=== PATIENT | female | born 1980 | race Caucasian/White ===

== ENCOUNTER 2016-04-14 14:34 | Emergency (ER) | payer OTHER ==
[~2016-04-14 14:34] MED LIST: CIPRO PO; DOXYCYCLINE PO; KEPPRA1000 MG PO; KEPPRA750 MG PO; MIRALAX17 GM PO
== END 2016-04-14 14:39 | disposition home or self-care (01) ==
LOC: CFTX 14:34
DX: Z76.0 Encounter for issue of repeat prescription (principal); F17.210 Nicotine dependence, cigarettes, uncomplicated; Z98.51 Tubal ligation status
CPT/HCPCS: 99282

== ENCOUNTER 2016-05-02 07:39 | Inpatient (IN) | payer OTHER ==
--- NOTE | ~2016-05-02 | PN ---
Unit #: [id number] #: [id number] Patient: VERONIQUE RODRIGUEZ [id number] [facility] [address] [place] [address] [id number] I MR#: [id number] NAME: VERONIQUE RODRIGUEZ. ROOM: P209 Age: 36 Sex: F Admission Date: 05/02/2016 : 1980 Attending Physician: Modesto Morelos M.D. Admitting Physician: Modesto Morelos M.D. Primary Care Physician: Generic Doctor Not In System [facility] PROGRESS NOTES DATE 05/04/2016 DISCUSSION Ms. Rodriguez is a 36-year-old white female with substance abuse and mood disorder who was seen today and chart was reviewed and case was discussed with the staff. She has been anxious, withdrawn and rather seclusive to herself. Meanwhile, she has been cooperative with treatment recommendations as she has been taking the medications and tolerating them fairly well. MENTAL STATUS EXAMINATION Young white female who was casually dressed with fair personal hygiene, appears to be in no acute distress or discomfort. She was awake and alert on interaction with intact orientation. Her mood was anxious with congruent affect. She denies any suicidal or homicidal ideations. Her insight and judgement remains slightly impaired. TREATMENT PLAN 1. We will continue her on her current medications and treatment protocol. We will monitor her response to the medication and make further adjustments as needed. 2. We will continue to follow up. Dictated by... Elisa Patino/jaspreet TD: 05/05/2016 02:16 JOB #: [id number] Unit #: [id number] #: [id number] Patient: VERONIQUE RODRIGUEZ [facility] PROGRESS NOTES Page 1 of 1 X Modesto Morelos MD X PROGRESS NOTE
--- NOTE | ~2016-05-02 | PN ---
Unit #: [id number] #: [id number] Patient: VERONIQUE RODRIGUEZ [id number] [facility] [address] [place] [address] [id number] MR#: [id number] NAME: VERONIQUE RODRIGUEZ. ROOM: P209 Age: 36 Sex: F Admission Date: 05/02/2016 : 1980 Attending Physician: Modesto Morelos M.D. Admitting Physician: Modesto Morelos M.D. Primary Care Physician: Generic Doctor Not In System [facility] PROGRESS NOTES DATE OF SERVICE: 05/03/2016 SUBJECTIVE Ms. Rodriguez is a 36-year-old white female, who was seen today and chart was reviewed, and case was discussed with the staff. The patient has been anxious and withdrawn, though has not shown any agitation, irritability or behavioral problems and has been cooperative with treatment recommendations as she has been taking medications and tolerating them fairly well. MENTAL STATUS EXAMINATION Young white female, who was casually dressed with fair personal hygiene, appears to be in no distress or discomfort. Her mood was anxious with a congruent affect. Her speech was slow and restricted in content. Her thought processes were disorganized with some looseness of associations. Her insight and judgment remain significantly impaired. TREATMENT PLAN 1. We will continue her on her current medications and treatment protocol. We will monitor her response to the medications and make further adjustments as needed. 2. We will continue to follow up. Dictated by... Elisa Patino/joel TD: 05/04/2016 02:32 JOB #: [id number] [facility] PROGRESS NOTES Page 1 of 1 X Modesto Morelos MD PROGRESS NOTE
--- NOTE | ~2016-05-02 | DS ---
Unit #: [id number] #: [id number] Patient: [facility]LEXIS [id number] [facility] [address] [place] [address] [id number] MR#: [id number] NAME: VERONIQUE ALEXIS. ROOM: P209 Age: 36 Sex: F Admission Date: 05/02/2016 : 1980 Discharge Date: 05/05/2016 Attending Physician: Modesto Morelos M.D. Primary Care Physician: Generic Doctor Not In System DISCHARGE SUMMARY IDENTIFYING DATA Ms. Alexis is a 36-year-old single white female, who is a resident of [place], [place], and is known to us from previous encounter, was self-referred to the hospital. DISCHARGE DIAGNOSES Psychiatric: Major depressive disorder, recurrent, moderate, without psychotic features; opioid dependence, moderate and acute withdrawals; methamphetamine dependence, moderate. Medical: None. Stressors: Moderate psychosocial stressors. HISTORY OF PRESENT ILLNESS Please see initial psychiatric evaluation for details. PAST PSYCHIATRIC HISTORY Please see initial psychiatric evaluation for details. PAST MEDICAL HISTORY Please see initial psychiatric evaluation for details. HOSPITAL COURSE The patient was admitted to the adult psychiatric unit at [facility] and was oriented to the hospital environment. Routine p.r.n. medications were initiated, and she was started back on her home medications including her Celexa, and opioid detox protocol was initiated and she was closely monitored. She was taking the medications regularly and was tolerating them fairly well and was able to show a decent and therapeutic response and was willing to continue treatment on an outpatient basis and as such, it was decided that she will be discharged home and will continue treatment on an outpatient basis. DISCHARGE MEDICATIONS Keppra 500 mg b.i.d. for seizure disorder, Celexa 20 mg a day for depression. DISCHARGE CONDITION Stable. PROGNOSIS Fair. Dictated by... Unit #: [id number] #: [id number] Patient: VERONIQUE ALEXIS Elisa Patino/merlin TD: 05/05/2016 07:07 JOB #: [id number] DISCHARGE SUMMARY Page 1 of 1 X Modesto Morelos MD X DISCHARGE SUMMARY
--- NOTE | ~2016-05-02 | PA ---
Unit #: [id number] #: [id number] Patient: VERONIQUE RODRIGUEZ [id number] [facility] [address] [place] [address] [id number] I MR#: [id number] NAME: VERONIQUE RODRIGUEZ. ROOM: P209 Age: 36 Sex: F Admission Date: 05/02/2016 : 1980 Date of Assessment: 05/02/2016 Attending Physician: Modesto Morelos M.D. Admitting Physician: Modesto Morelos M.D. Primary Care Physician: Generic Doctor Not In System PSYCHIATRIC ASSESSMENT DATE OF SERVICE 05/02/2016. IDENTIFYING DATA Ms. Rodriguez is a 36-year-old single white female who is a resident of [place], [place] who is known to us from previous encounter and was self-referred to the hospital. CHIEF COMPLAINT "I started doing heroin again and I've been doing it since I left." HISTORY OF PRESENT ILLNESS Ms. Rodriguez is a 36-year-old single white female who is known to us from previous encounter, was self-referred to the hospital stating that she relapsed on heroin soon after she left the hospital and has been using heroin ever since and "I'm tired of being high and I just want to get back on feet and I talked to my kids and they said that they want their mother back." The patient stated that she has been using and abusing heroin and methamphetamine social at [facility] that she has been using 0.5 g to 1 g of heroin on daily basis by snorting and has been using 1 g of methamphetamine by smoking and snorting, and last use of both substances was on the morning of coming to the hospital and does report some significant depression, anxiety, restlessness, irritability, and reports that she has been having suicidal thoughts "I want to kill myself. I'm not planned it out, but I want to . I would rather be than deal with my life." She was seen to be danger to self and as such, recommendation for inpatient level of care for safety and stabilization was made and recommendation for inpatient level of care was initiated. SUBSTANCE ABUSE HISTORY The patient reports history of cannabis, cocaine, opioids, and methamphetamine abuse, and currently opioids and methamphetamine has been her drug of choice. PAST PSYCHIATRIC HISTORY The patient has had history of inpatient chemical dependency treatment at [facility] and review of the medical records indicate that she is currently on Celexa 20 mg a day. PAST MEDICAL HISTORY Seizure disorder. ALLERGIES Unit #: [id number] #: [id number] Patient: VERONIQUE RODRIGUEZ No known medication allergies. PERSONAL AND SOCIAL HISTORY A 36-year-old white female who reports that she is single, unemployed, and lives at home by herself and has poor social support system. MENTAL STATUS EXAMINATION Young white female who was casually dressed with fair personal hygiene, appears to be in no acute distress or discomfort. She was awake and alert on interaction with intact orientation to time, place, and person. Her mood was anxious and depressed with a congruent affect. Her speech was slow and goal directed. She reports having suicidal ideations, but denies any homicidal ideations, and also denies any auditory or visual hallucinations. Her insight and judgment remain significantly impaired. DIAGNOSTIC IMPRESSION Psychiatric: Major depressive disorder, recurrent, moderate, without psychotic features; opioid dependence, moderate and acute withdrawals; methamphetamine dependence, moderate. Medical: None. Stressors: Moderate psychosocial stressors. TREATMENT PLAN 1. The patient has presented with a history of mood disorder and substance abuse, and has been decompensating and will need inpatient hospitalization for detoxification, and safety, and stabilization. We will start her back on her home medications. We will adjust the medications and monitor response. 2. Supportive therapy was provided to the patient. 3. Safe, structured, and nourishing environment will be provided. ESTIMATED LENGTH OF STAY 4 to 5 days. ABILITY TO HELP SELF Limited. WILLINGNESS TO HELP SELF The patient appears to be willing to help self. STRENGTHS 1. Communicative. 2. Cooperative. PROBLEMS 1. Chronic dysphoric symptoms. 2. Chronic chemical dependency. 3. Poor social support system. DISCHARGE CRITERIA This will be contingent upon the patient's ability to show resolution of her depression and her ability to go through detox without having any significant withdrawal symptoms as well as her ability to stay safe to herself, particularly after discharge from the hospital. Dictated by..Alma Morelos M.D. Unit #: [id number] #: [id number] Patient: VERONIQUE RODRIGUEZ IAA/modl TD: 05/03/2016 08:30 JOB #: [id number] PSYCHIATRIC ASSESSMENT Page 1 of 1 X Modesto Moreols MD PSYCHIATRIC ASSESSMENT
--- NOTE | ~2016-05-02 | HP ---
Unit #: [id number] #: [id number] Patient: SHERIN RODRIGUEZ [id number] [place] [address] [id number] MR#: [id number] NAME: SHERIN RODRIGUEZ. ROOM: P209 Age: 36 Sex: F Admission Date: 05/02/2016 : 1980 Attending Physician: Modesto Morelos M.D. Admitting Physician: Modesto Morelos M.D. Primary Care Physician: Generic Doctor Not In System HISTORY AND PHYSICAL HISTORY OF PRESENT ILLNESS Sherin is a 36 year old admitted to [address] [place] [address] because of her continued drug use. She has had other admissions to this facility for the same. PAST MEDICAL HISTORY 1. Long history of illicit substance abuse. 2. Poor dental hygiene. 3. Seizure disorder. EEG from October 24, 2002 was abnormal showing paroxysmal flowing centrally with sharp discharges suggestive of irritative focus in the central region. PAST SURGICAL HISTORY Tubal ligation. ALLERGIES No known drug allergies. SOCIAL HISTORY Smokes one pack per day. Drinks alcohol on occasion. Admits to a long history of illicit substance abuse. FAMILY HISTORY Medically noncontributory. REVIEW OF SYSTEMS CONSTITUTIONAL: No fever or chills. HEENT: Denies any sore throat, ear pain or runny nose. CARDIOVASCULAR: Denies chest pain, irregular heart rhythm or palpitations. CHEST: Denies shortness of breath or cough. No hemoptysis. GASTROINTESTINAL: Denies nausea, vomiting, diarrhea or chronic constipation. ENDOCRINE: Denies history of increased thirst or urination. No recent significant weight loss or gain. GENITOURINARY: Denies dysuria, frequency, or hematuria. SKIN: Denies any rashes. HEMATOLOGIC: Denies history of increased bleeding or bruising. MUSCULOSKELETAL: Denies any hot, swollen joints. No generalized muscle pain. NEUROLOGIC: Denies problems with vision or speech. No frequent, severe headaches. No numbness, tingling or weakness in any extremities. Denies loss of bladder or bowel control. CURRENT MEDICATIONS Unit #: [id number] #: [id number] Patient: SHERIN RODRIGUEZ 1. Detox protocol 2. Celexa 20 mg daily 3. Keppra 500 mg b.i.d. PHYSICAL EXAMINATION GENERAL: Alert, thin, in no apparent distress. VITAL SIGNS: Blood pressure 117/68, heart rate 80, respirations 16, temperature 98.6. WEIGHT: 140 pounds. HEIGHT: 5'5". SKIN: Warm and dry without rash or lesion. HEENT: Normocephalic. TMs not viewed. Oral and nasal passages clear. Conjunctivae clear. Pupils equal, round and reactive to light and accommodation. Extraocular movements intact. NECK: Supple without lymphadenopathy or thyromegaly. HEART: Regular rate and rhythm without murmur. LUNGS: Clear. ABDOMEN: Soft, nontender. : Not done. EXTREMITIES: No evidence of cyanosis, clubbing or edema. Moves all extremities without focal deficit. NEUROLOGICAL: Grossly within normal limits. Cranial Nerves: II: Visual reaves are intact. III, IV AND : Extraocular movements are intact. Pupils are equal, round and reactive to light. V: Facial sensation is grossly normal. VII: Facial movements and expression are normal. VIII: Auditory acuity grossly intact. IX, X: Uvula is midline. Phonation is normal. XI: Patient shrugs shoulders and turns head normally. XII: Tongue protrudes in the midline. Sensory and Motor Function: Sensory and motor sensation is grossly normal. Motor: moves all extremities well. Coordination: Gait is normal. Deep Tendon Reflexes: Intact. IMPRESSION Psychiatric admission RECOMMENDATIONS PSYCHIATRIC: Per psychiatrist. MEDICAL: I see no contraindications to participating in facility's activities. MEDICAL PROGNOSIS Good. MEDICAL CONDITION Stable. Dictated by... Pam Mondragon P.A.-C. for Elisa Schuster/jaspreet Unit #: [id number] #: [id number] Patient: SHERIN RODRIGUEZ TD: 05/02/2016 20:23 JOB #: [id number] HISTORY AND PHYSICAL X Pam Mondragon HISTORY AND PHYSICAL
[2016-05-03 09:34] LABS: BASOPHIL% 0.8 % (0-2.5); EOSINOPHIL# 0.2 X10e3 (0-0.7); EOSINOPHIL% 3.5 % (0.0-7.0); HEMATOCRIT 34.2 % (35.0-45.0); HEMOGLOBIN 10.9 gm/dL (12.0-16.0); LYMPHOCYTE# 1.7 X10e3 (1.0-3.5); MEAN CELL VOLUME 87.8 FL (83-96); MEAN CORPUSCULAR HEMOGLOBIN 27.9 PG (28-34); MEAN CORPUSCULAR HGB CONC 31.8 g/dL (30-36); MEAN PLATELET VOLUME 9.1 FL (6.5-11.5); MONOCYTE# 0.3 X10e3 (0-1.0); MONOCYTE% 6.1 % (3.0-12.0); NEUTROPHIL# 3.3 X10e3 (1.5-7.1); NEUTROPHIL% 59.6 % (40-75); PLATELET COUNT 194 X10e3 (140-420); WHITE BLOOD COUNT 5.5 X10e3 (4.0-10.5)
[2016-05-03 09:39] LABS: DIFF IND NO
[2016-05-03 10:20] LABS: THYROID STIMULATING HORMONE 1.83 uIU/ml (0.34-5.60)
[2016-05-03 10:22] LABS: ALBUMIN SERUM 3.8 g/dL (3.5-5.0); ALKALINE PHOSPHATASE 76 U/L (32-92); ALT (SGPT) 14 U/L (10-40); AST (SGOT) 18 U/L (10-42); BILIRUBIN,TOTAL 0.6 mg/dL (0.2-2.0); BLOOD UREA NITROGEN 14 mg/dL (9-23); CARBON DIOXIDE 28 mmol/L (22-31); CHLORIDE 102 mmol/L (100-111); CREATININE SERUM 0.7 mg/dL (0.6-1.4); GLOM FILT RATE Estimated ABOVE60 mL/min (>60); GLUCOSE FASTING 110 mg/dL (70-110); POTASSIUM 4.1 mmol/L (3.5-5.1); PROTEIN TOTAL SERUM 6.3 g/dL (6.0-8.3); SODIUM 138 mmol/L (135-145)
[2016-05-03 10:29] LABS: FREE THYROXIN (T4) 0.66 ng/dL (0.58-1.64)
[2016-05-04 12:41] LABS: URINE APPEARANCE TURBID; URINE BILIRUBIN NEG (NEG); URINE BLOOD 3+ (NEG); URINE COLOR YELLOW; URINE GLUCOSE NEG (NEG); URINE KETONE NEG (NEG); URINE LEUKOCYTE ESTERASE NEG (NEG); URINE NITRATE NEG (NEG); URINE PROTEIN NEG (NEG); URINE UROBILINOGEN 0.2 MG/DL (NEG)
[2016-05-04 12:45] LABS: URINE BACTERIA AUWI 2+ (NEGATIVE); URINE SQUAMOUS EPITHELIAL CELL MANY /[HPF]
[2016-05-04 13:30] LABS: AMPHETAMINE NEG (NEG); BARBITURATES NEG (NEG); BENZODIAZEPINES NEG (NEG); COCAINE NEG (NEG); MARIJUANA NEG (NEG); OPIATES NEG (NEG); TRICYCLIC ANTIDEPRESSANTS NEG (NEG); U METHADONE NEG (NEG)
== END 2016-05-05 11:25 | disposition home or self-care (01) | DRG 885 ==
LOC: POF 07:39 → P2S 10:57
PROVIDERS: Psychiatry & Neurology Psychiatry
PROC: HZ2ZZZZ Detoxification Services for Substance Abuse Treatment (ICD-10-PCS; principal; 2016-05-02)
PROC: 3E0234Z Introduction of Serum, Toxoid and Vaccine into Muscle, Percutaneous Approach (ICD-10-PCS; 2016-05-03)
DX: F33.1 Major depressive disorder, recurrent, moderate (principal); F15.20 Other stimulant dependence, uncomplicated; F11.23 Opioid dependence with withdrawal; F17.210 Nicotine dependence, cigarettes, uncomplicated; G40.909 Epilepsy, unspecified, not intractable, without status epilepticus; Z98.51 Tubal ligation status; Z23 Encounter for immunization
CPT/HCPCS: 80053; 80307; 81003; 84439; 84443; 84703; 85025; 86592; 90688

== ENCOUNTER 2016-05-21 06:11 | Emergency (ER) | payer OTHER ==
[2016-05-21 06:21] LABS: AMPHETAMINE POS (NEG); BARBITURATES NEG (NEG); BENZODIAZEPINES NEG (NEG); COCAINE NEG (NEG); MARIJUANA NEG (NEG); OPIATES NEG (NEG); TRICYCLIC ANTIDEPRESSANTS NEG (NEG); U METHADONE NEG (NEG)
== END 2016-05-21 06:34 | disposition home or self-care (01) ==
LOC: CED 06:11
PROVIDERS: Nurse Practitioner
DX: G40.909 Epilepsy, unspecified, not intractable, without status epilepticus (principal); Z76.0 Encounter for issue of repeat prescription; F19.10 Other psychoactive substance abuse, uncomplicated; F17.210 Nicotine dependence, cigarettes, uncomplicated
CPT/HCPCS: 80307; 84703; 99284

== ENCOUNTER 2016-06-13 16:02 | Emergency (ER) | payer OTHER ==
[2016-06-13 14:58] LABS: BASOPHIL% 0.6 % (0-2.5); EOSINOPHIL# 0.2 X10e3 (0-0.7); EOSINOPHIL% 2.7 % (0.0-7.0); HEMATOCRIT 39.2 % (35.0-45.0); HEMOGLOBIN 12.3 gm/dL (12.0-16.0); LYMPHOCYTE# 1.5 X10e3 (1.0-3.5); LYMPHOCYTE% 23.4 % (17.0-45.0); MEAN CELL VOLUME 87.8 FL (83-96); MEAN CORPUSCULAR HEMOGLOBIN 27.6 PG (28-34); MEAN CORPUSCULAR HGB CONC 31.4 g/dL (30-36); MEAN PLATELET VOLUME 9.6 FL (6.5-11.5); MONOCYTE# 0.4 X10e3 (0-1.0); MONOCYTE% 6.2 % (3.0-12.0); NEUTROPHIL# 4.3 X10e3 (1.5-7.1); NEUTROPHIL% 67.1 % (40-75); PLATELET COUNT 183 X10e3 (140-420); RED BLOOD COUNT 4.46 X10e (3.90-5.30); RED CELL DISTRIBUTION WIDTH 17.8 % (11.0-15.5); WHITE BLOOD COUNT 6.4 X10e3 (4.0-10.5)
[2016-06-13 15:04] LABS: DIFF IND NO
[2016-06-13 15:38] LABS: BLOOD UREA NITROGEN 11 mg/dL (9-23); CALCIUM SERUM 9.1 mg/dL (8.4-10.2); CARBON DIOXIDE 26 mmol/L (22-31); CHLORIDE 106 mmol/L (100-111); CREATININE SERUM 0.5 mg/dL (0.6-1.4); GLOM FILT RATE Estimated 126.3 mL/min (>60); GLUCOSE FASTING 107 mg/dL (70-110); SODIUM 140 mmol/L (135-145)
[2016-06-13 15:39] LABS: ALCOHOL BLOOD <5 mg/dL (0)
[2016-06-13 15:56] LABS: URINE SOURCE CLEAN CATCH
[2016-06-13 16:02] LABS: URINE APPEARANCE CLEAR; URINE BILIRUBIN NEG (NEG); URINE BLOOD TRACE (NEG); URINE COLOR YELLOW; URINE GLUCOSE NEG (NEG); URINE KETONE NEG (NEG); URINE LEUKOCYTE ESTERASE NEG (NEG); URINE NITRATE NEG (NEG); URINE PROTEIN NEG (NEG); URINE UROBILINOGEN 0.2 MG/DL (NEG)
[2016-06-13 16:05] LABS: CULTURE INDICATED? YES; U HYALINE CASTS AUWI 0-2 /[LPF]; URBCS1 AUWI 0-2 /[HPF] (0-2); URINE BACTERIA AUWI 3+ (NEGATIVE); URINE SQUAMOUS EPITHELIAL CELL FEW /[HPF]
[2016-06-13 16:12] LABS: AMPHETAMINE POS (NEG); BARBITURATES NEG (NEG); BENZODIAZEPINES NEG (NEG); COCAINE NEG (NEG); MARIJUANA NEG (NEG); OPIATES NEG (NEG); TRICYCLIC ANTIDEPRESSANTS NEG (NEG); U METHADONE NEG (NEG)
== END 2016-06-13 16:31 | disposition home or self-care (01) ==
LOC: CED 16:02
PROVIDERS: Emergency Medicine
DX: N39.0 Urinary tract infection, site not specified (principal); Z76.0 Encounter for issue of repeat prescription; G40.909 Epilepsy, unspecified, not intractable, without status epilepticus; F17.210 Nicotine dependence, cigarettes, uncomplicated
CPT/HCPCS: 36415; 80048; 80307; 81003; 84703; 85025; 87086; 96365; 99284; G0480; J1953

== ENCOUNTER 2016-06-30 05:05 | Emergency (ER) | payer OTHER ==
[2016-06-30 08:28] LABS: BASOPHIL% 0.7 % (0-2.5); DIFF IND NO; EOSINOPHIL# 0.2 X10e3 (0-0.7); EOSINOPHIL% 2.7 % (0.0-7.0); HEMATOCRIT 35.2 % (35.0-45.0); HEMOGLOBIN 11.2 gm/dL (12.0-16.0); LYMPHOCYTE# 1.9 X10e3 (1.0-3.5); LYMPHOCYTE% 26.8 % (17.0-45.0); MEAN CELL VOLUME 86.4 FL (83-96); MEAN CORPUSCULAR HEMOGLOBIN 27.5 PG (28-34); MEAN CORPUSCULAR HGB CONC 31.9 g/dL (30-36); MEAN PLATELET VOLUME 9.3 FL (6.5-11.5); MONOCYTE# 0.5 X10e3 (0-1.0); MONOCYTE% 6.4 % (3.0-12.0); NEUTROPHIL# 4.5 X10e3 (1.5-7.1); NEUTROPHIL% 63.4 % (40-75); PLATELET COUNT 204 X10e3 (140-420); RED BLOOD COUNT 4.07 X10e (3.90-5.30); WHITE BLOOD COUNT 7.1 X10e3 (4.0-10.5)
[2016-06-30 09:27] LABS: CALCIUM SERUM 8.9 mg/dL (8.4-10.2); CARBON DIOXIDE 25 mmol/L (22-31); CHLORIDE 105 mmol/L (100-111); POTASSIUM 3.3 mmol/L (3.5-5.1); SODIUM 140 mmol/L (135-145)
[2016-06-30 09:30] LABS: ACETAMINOPHEN <10 ug/mL; ALBUMIN SERUM 3.7 g/dL (3.5-5.0); ALCOHOL BLOOD <5 mg/dL (0); ALKALINE PHOSPHATASE 83 U/L (32-92); ALT (SGPT) 12 U/L (10-40); AST (SGOT) 17 U/L (10-42); BILIRUBIN, DIRECT <0.1 mg/dL (0.0-0.2); BILIRUBIN,INDIRECT 0.3 mg/dL (0.0-0.9); BILIRUBIN,TOTAL 0.4 mg/dL (0.2-2.0); BLOOD UREA NITROGEN 12 mg/dL (9-23); CREATININE SERUM 0.6 mg/dL (0.6-1.4); GLOM FILT RATE Estimated 118.9 mL/min (>60); GLUCOSE FASTING 130 mg/dL (70-110); PROTEIN TOTAL SERUM 6.5 g/dL (6.0-8.3); SALICYLATE <4.0 mg/dL
== END 2016-06-30 13:50 | disposition home or self-care (01) ==
LOC: CED 05:05
PROVIDERS: Emergency Medicine
DX: F15.10 Other stimulant abuse, uncomplicated (principal); F41.9 Anxiety disorder, unspecified; F17.200 Nicotine dependence, unspecified, uncomplicated
CPT/HCPCS: 36415; 80048; 80076; 84703; 85025; 99285; G0480

== ENCOUNTER 2016-06-30 10:00 | Inpatient (IN) | payer OTHER ==
--- NOTE | ~2016-06-30 | PN ---
Unit #: [id number] #: [id number] Patient: VERONIQUE ALEXIS [id number] [facility] [address] [place] [address] [id number] MR#: [id number] NAME: VERONIQUE ALEXIS. ROOM: [facility] Age: 36 Sex: F Admission Date: 06/30/2016 : 1980 Attending Physician: Modesto Morelos M.D. Admitting Physician: Modesto Morelos M.D. Primary Care Physician: Primary Care Physician Catia BEASLEY PROGRESS NOTES DATE 07/02/2016 DISCUSSION Ms. Alexis is a 36-year-old white female who was seen today and chart was reviewed and case was discussed with the staff. By report she was anxious, withdrawn and seclusive to herself and (1) to carry a meaningful conversation. Does not appear to be actively functioning or taking care of her daily living or paying attention to her personal hygiene and does appear to be some distress or discomfort. MENTAL STATUS EXAMINATION Young white female who was casually dressed with fair personal hygiene, appears to be in no acute distress or discomfort. Her mood was anxious with congruent affect. Her speech was slow and goal-directed. She denies any suicidal or homicidal ideations. Also, denies any auditory or visual hallucinations. Her insight and judgement remains slightly impaired. TREATMENT PLAN 1. We will continue her on her current medications and treatment protocol. We will monitor her response and make further adjustments as needed. 2. We will continue to follow up. Dictated by... Elisa Patino/jaspreet TD: 07/03/2016 19:40 JOB #: [id number] Unit #: [id number] #: [id number] Patient: VERONIQUE ALEXIS [facility] PROGRESS NOTES Page 1 of 1 X Modesto Morelos MD PROGRESS NOTE
--- NOTE | ~2016-06-30 | HP ---
Unit #: [id number] #: [id number] Patient: SHERIN RODRIGUEZ [id number] [place] [address] [id number] MR#: [id number] NAME: SHERIN RODRIGUEZ. ROOM: [facility] Age: 36 Sex: F Admission Date: 06/30/2016 : 1980 Attending Physician: Modesto Morelos M.D. Admitting Physician: Modesto Morelos M.D. Primary Care Physician: Primary Care Physician No HISTORY AND PHYSICAL HISTORY OF PRESENT ILLNESS Sherin is a 36 year old admitted to [facility] because of her continued polysubstance abuse. She has had other admissions to this facility for the same. PAST MEDICAL HISTORY 1. Long history of illicit substance abuse. 2. Seizure disorder. 3. Poor dental hygiene. PAST SURGICAL HISTORY Tubal ligation ALLERGIES No known drug allergies. SOCIAL HISTORY Smokes one pack per day. Drinks alcohol on occasion. Admits to a long history of illicit substance abuse. FAMILY HISTORY Medically noncontributory. REVIEW OF SYSTEMS CONSTITUTIONAL: No fever or chills. HEENT: Denies any sore throat, ear pain or runny nose. CARDIOVASCULAR: Denies chest pain, irregular heart rhythm or palpitations. CHEST: Denies shortness of breath or cough. No hemoptysis. GASTROINTESTINAL: Denies nausea, vomiting, diarrhea or chronic constipation. ENDOCRINE: Denies history of increased thirst or urination. No recent significant weight loss or gain. GENITOURINARY: Denies dysuria, frequency, or hematuria. SKIN: Denies any rashes. HEMATOLOGIC: Denies history of increased bleeding or bruising. MUSCULOSKELETAL: Denies any hot, swollen joints. No generalized muscle pain. NEUROLOGIC: Denies problems with vision or speech. No frequent, severe headaches. No numbness, tingling or weakness in any extremities. Denies loss of bladder or bowel control. CURRENT MEDICATIONS Unit #: [id number] #: [id number] Patient: SHERIN RODRIGUEZ 1. Keppra 1000 mg b.i.d. 2. Milk of Magnesia p.r.n. 3. Maalox p.r.n. 4. Tylenol p.r.n. 5. Nicotine patch 14 mg q day PHYSICAL EXAMINATION GENERAL: Alert, well-nourished, in no apparent distress. VITAL SIGNS: Blood pressure 118/80, heart rate 80, respirations 16, temperature 98.6. WEIGHT: 121 pounds. HEIGHT: 5'4". SKIN: Warm and dry without rash or lesion. HEENT: Normocephalic. TMs not viewed. Oral and nasal passages clear. Conjunctivae clear. Pupils equal, round and reactive to light and accommodation. Extraocular movements intact. NECK: Supple without lymphadenopathy or thyromegaly. HEART: Regular rate and rhythm without murmur. LUNGS: Clear. ABDOMEN: Soft, nontender. : Not done. EXTREMITIES: No evidence of cyanosis, clubbing or edema. Moves all extremities without focal deficit. NEUROLOGICAL: Grossly within normal limits. Cranial Nerves: II: Visual reaves are intact. III, IV AND : Extraocular movements are intact. Pupils are equal, round and reactive to light. V: Facial sensation is grossly normal. VII: Facial movements and expression are normal. VIII: Auditory acuity grossly intact. IX, X: Uvula is midline. Phonation is normal. XI: Patient shrugs shoulders and turns head normally. XII: Tongue protrudes in the midline. Sensory and Motor Function: Sensory and motor sensation is grossly normal. Motor: moves all extremities well. Coordination: Gait is normal. Deep Tendon Reflexes: Intact. IMPRESSION Psychiatric admission RECOMMENDATIONS PSYCHIATRIC: Per psychiatrist. MEDICAL: I see no contraindications to participating in facility's activities. MEDICAL PROGNOSIS Good. MEDICAL CONDITION Stable. Dictated by... Pam Mondragon P.A.-C. for Marv Schwarz M.D. Unit #: [id number] #: [id number] Patient: SHERIN RODRIGUEZ NATALIIA/jaspreet TD: 07/01/2016 01:27 JOB #: [id number] HISTORY AND PHYSICAL Page 1 of 1 X Pam Mondragon HISTORY AND PHYSICAL
--- NOTE | ~2016-06-30 | PN ---
Unit #: [id number] #: [id number] Patient: VERONIQUE ALEXIS [id number] [facility] [address] [place] [address] [id number] I MR#: [id number] NAME: VERONIQUE ALEXIS. ROOM: P185 Age: 36 Sex: F Admission Date: 06/30/2016 : 1980 Attending Physician: Modesto Morelos M.D. Admitting Physician: Modesto Morelos M.D. Primary Care Physician: Primary Care Physician Catia MAZA NOTES DATE OF SERVICE: 07/04/2016 SUBJECTIVE Ms. Alexis is a 36-year-old white female with substance abuse and mood disorder, who was seen today and chart was reviewed, and case was discussed with the staff. She reports not feeling good and still having some persistent detox symptoms and activities of daily living. Meanwhile, she has been taking medications and tolerating them fairly well with no reported side effects. MENTAL STATUS EXAMINATION Young white female, who was casually dressed with fair personal hygiene, appears to be in no acute distress or discomfort. She was awake and alert on interaction with intact orientation. Her mood was anxious and depressed with a congruent affect. Her speech was slow and goal directed. She denies any suicidal or homicidal ideations and also denies any auditory or visual hallucinations. Her insight and judgment remain slightly impaired. TREATMENT PLAN 1. We will continue on her current treatment protocol. We will monitor her response to medications and make further adjustments as needed. 2. We will continue to follow up. Dictated by... Elisa Patino/merlin TD: 07/04/2016 08:16 JOB #: [id number] Unit #: [id number] #: [id number] Patient: VERONIQUE ALEXIS [facility] PROGRESS NOTES Page 1 of 1 X Modesto Morelos MD PROGRESS NOTE
--- NOTE | ~2016-06-30 | CO ---
Unit #: [id number] #: [id number] Patient: SHERIN RODRIGUEZ [id number] [place] [address] [id number] I MR#: [id number] NAME: SHERIN RODRIGUEZ. ROOM: [facility] Age: 36 Sex: F Admission Date: 06/30/2016 : 1980 Attending Physician: Modesto Morelos M.D. Primary Care Physician: Primary Care Physician No Requesting Physician: Modesto Morelos M.D. Consultation Date: 07/02/2016 CONSULTATION REPORT HISTORY OF PRESENT ILLNESS Sherin has complaints of chest and nasal congestion. She is having occasional cough with runny nose and sneezing for the past week and half. No fever, no shortness of breath, no throat and no ear pain. She has no other complaints. PHYSICAL EXAM CARDIAC: Regular rate and rhythm. No murmur, gallop or rub. RESPIRATORY: Clear to auscultation bilaterally. ASSESSMENT AND PLAN Allergic rhinitis. We will begin Claritin 10 mg one p.o. daily and Flonase two sprays per nostril daily. Please notify if symptoms are unresolved. Dictated by... Skylar RolonPAlmaRAlmaN. for Chuck TD: 07/04/2016 01:01 JOB #: [id number] CONSULTATION REPORT Page 1 of 1 X TWIN WALTERS APRN CONSULTATION REPORT
--- NOTE | ~2016-06-30 | PN ---
Unit #: [id number] #: [id number] Patient: VERONIQUE ALEXIS [id number] [facility] [address] [place] [address] [id number] I MR#: [id number] NAME: VERONIQUE ALEXIS. ROOM: 85 Age: 36 Sex: F Admission Date: 06/30/2016 : 1980 Attending Physician: Modesto Morelos M.D. Admitting Physician: Modesto Morelos M.D. Primary Care Physician: Primary Care Physician Catia MAZA NOTES DATE 07/01/2016 DISCUSSION Ms. Alexis is a 36-year-old white female with mood disorder and substance abuse who was seen today and chart was reviewed and case was discussed with the staff. She has been anxious, withdrawn, depressed, anxious, ____ as she was laying in her bed. Meanwhile, she has been cooperative with treatment recommendations and has been taking medications and tolerating them fairly well with no reported side effects. MENTAL STATUS EXAMINATION Young white female who was casually dressed with fair personal hygiene and appears to be in no acute distress or discomfort. She was awake and alert on interaction with intact orientation. Her mood was anxious with congruent affect. She reports having suicidal ideation but denies any homicidal ideation and also denies any auditory or visual hallucinations. Her insight and judgement remains slightly impaired. TREATMENT PLAN 1. Will continue on current medications and treatment protocol and will monitor her response to the medications and make further adjustments as needed. 2. Will continue to follow up. Dictated by... Elisa Patino/emma TD: 07/01/2016 19:56 JOB #: [id number] Unit #: [id number] #: [id number] Patient: VERONIQUE ALEXIS [facility] PROGRESS NOTES Page 1 of 1 X Modesto Morelos MD PROGRESS NOTE
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
--- NOTE | ~2016-06-30 | PA ---
Unit #: [id number] #: [id number] Patient: VERONIQUE RODRIGUEZ [id number] [facility] [address] [place] [address] [id number] I MR#: [id number] NAME: VERONIQUE RODRIGUEZ. ROOM: P185 Age: 36 Sex: F Admission Date: 06/30/2016 : 1980 Date of Assessment: 06/30/2016 Attending Physician: Modesto Morelos M.D. Admitting Physician: Modesto Morelos M.D. Primary Care Physician: Primary Care Physician No PSYCHIATRIC ASSESSMENT DATE OF SERVICE 06/30/2016. IDENTIFYING DATA Ms. Rodriguez is a 36-year-old, single, white female, who is a resident of [place], [place], and was transferred to from [facility] on a voluntary basis. CHIEF COMPLAINT "Suicidal ideation and methamphetamine abuse." HISTORY OF PRESENT ILLNESS Ms. Rodriguez is a 36-year-old white female with dual diagnosis of mood disorder and substance abuse, who is known to us from previous encounter, was recently discharged from my care a couple of months ago and was transferred back to us from [facility] where she presented stating that she has been having suicidal ideation and she is wanting to hurt herself and does not know how she would do it, but stated "I'm done, done with my life, with everything, there is no point anymore." She reports that she has been using methamphetamine on a regular basis with the last use being on the morning of coming to the hospital. She also stated "I live with some friends." She reports that her friends are getting custody of their two children back, so, the patient will have to move out very soon and the patient reports that she has no housing plans after that and her mother 4 years ago and also reports that her relationship for 19 years ended a year ago and she is having difficulty coping with abandonment and does report increasing depression, anxiety, feelings of hopelessness and helplessness, stating "I've no one." She also reports suicidal ideations, intent and plan and as such, was seen to be danger to self and therefore recommendation for inpatient level of care was made and the patient was medically cleared to [facility] and then was transferred to us. SUBSTANCE ABUSE HISTORY The patient reports history of cannabis, cocaine, opioid, and amphetamine abuse, and currently, it appears that IV methamphetamine has been her drug of choice and she reports that she has been using 0.5 g of methamphetamine a day. PAST PSYCHIATRIC HISTORY The patient has had a history of multiple inpatient psychiatric and chemical dependency treatments at [facility] in addition to being at [facility] and review of the medical records indicate currently she is Unit #: [id number] #: [id number] Patient: VERONIQUE RODRIGUEZ not active in any treatment program, is not seeing a psychiatrist, and is not taking any psychotropic medications. PAST MEDICAL HISTORY Seizure disorder. ALLERGIES No known medication allergies. PERSONAL AND SOCIAL HISTORY A 36-year-old single white female, who reports that she is single, unemployed, and has been living with different friends and people and she does not have any stable housing and essentially describes herself to be homeless. MENTAL STATUS EXAMINATION Young white female, who was casually dressed with fair personal hygiene, appears to be in no acute distress or discomfort. She was awake and alert on interaction with intact orientation to time, place, and person. Her mood was anxious and depressed with a congruent affect. Her speech was slow and restricted in content. She reports having suicidal ideations, but denies any homicidal ideations, and also denies any auditory or visual hallucinations. Her insight and judgment remain slightly impaired. DIAGNOSTIC IMPRESSION Psychiatric: Major depressive disorder, recurrent, moderate, without psychotic features; methamphetamine dependence, moderate. Medical: Seizure disorder. Stressors: Moderate psychosocial stressors. TREATMENT PLAN 1. The patient has presented with a history of mood disorder, and has been decompensating and will need inpatient hospitalization for safety and stabilization. We will start her back on her home medications. We will adjust the medications and monitor response. 2. Supportive therapy was provided to the patient. 3. Safe, structured, and nourishing environment will be reported. ESTIMATED LENGTH OF STAY 4 to 5 days. ABILITY TO HELP SELF Limited. WILLINGNESS TO HELP SELF The patient appears to be willing to help self. STRENGTHS 1. Communicative. 2. Cooperative. PROBLEMS 1. Chronic dysphoric symptoms. 2. Chronic chemical dependency. 3. Poor social support system. Unit #: [id number] #: [id number] Patient: VERONIQUE RODRIGUEZ DISCHARGE CRITERIA This will be contingent upon the patient's ability to show resolution of her depression and anxiety and her ability to stay safe to herself, particularly after discharge from the hospital. Dictated by... Elisa Patino/merlin TD: 07/01/2016 07:05 JOB #: [id number] PSYCHIATRIC ASSESSMENT Page 1 of 1 X Modesto Morelos MD X PSYCHIATRIC ASSESSMENT
--- NOTE | ~2016-06-30 | DS ---
Unit #: [id number] #: [id number] Patient: [facility] ALEXIS [id number] [facility] [address] [place] [address] [id number] I MR#: [id number] NAME: VERONIQUE ALEXIS. ROOM: [facility] Age: 36 Sex: F Admission Date: 06/30/2016 : 1980 Discharge Date: 07/05/2016 Attending Physician: Modesto Morelos M.D. Primary Care Physician: Primary Care Physician No DISCHARGE SUMMARY IDENTIFYING DATA Ms. Alexis is a 36-year-old white female, who is a resident of [place], [place], and was transferred to us from [facility]. DISCHARGE DIAGNOSES Psychiatric: Major depressive disorder, recurrent, moderate, without psychotic features; methamphetamine dependence, moderate. Medical: Seizure disorder. Stressors: Moderate psychosocial stressors. HISTORY OF PRESENT ILLNESS Please see initial psychiatric evaluation for details. PAST PSYCHIATRIC HISTORY Please see initial psychiatric evaluation for details. PAST MEDICAL HISTORY Please see initial psychiatric evaluation for details. HOSPITAL COURSE The patient was admitted to the adult psychiatric and chemical dependency unit at [facility] and was oriented to the hospital environment. Routine p.r.n. medications were initiated, and she was started back on her home medications and medications were adjusted and Keppra was started back and Celexa was also initiated to help with depression and she was closely monitored. She was taking the medications regularly and was tolerating them fairly well and was able to show a decent therapeutic response with improvement in depression and anxiety and was able to show a decent therapeutic response to the medications and was willing to continue treatment on an outpatient basis and as such, it was decided that she will be discharged home and will continue treatment on an outpatient basis. DISCHARGE MEDICATIONS Celexa 20 mg a day for depression, Keppra 1000 mg b.i.d. for seizure disorder, and trazodone 100 mg at bedtime for sleep. DISCHARGE CONDITION Stable. PROGNOSIS Fair. Unit #: [id number] #: [id number] Patient: VERONIQUE ALEXIS Dictated by... Elisa Patino/merlin TD: 07/05/2016 07:49 JOB #: [id number] DISCHARGE SUMMARY Page 1 of 1 X Modesto Morelos MD DISCHARGE SUMMARY
--- NOTE | ~2016-06-30 | PN ---
Unit #: [id number] #: [id number] Patient: VERONIQUE RODRIGUEZ [id number] [facility] [address] [place] [address] [id number] I MR#: [id number] NAME: VERONIQUE RODRIGUEZ. ROOM: P185 Age: 36 Sex: F Admission Date: 06/30/2016 : 1980 Attending Physician: Modesto Morelos M.D. Admitting Physician: Modesto Morelos M.D. Primary Care Physician: Primary Care Physician Catia MAZA NOTES DATE OF SERVICE 07/03/2016 DISCUSSION Ms. Rodriguez is a 36-year-old white female with substance abuse and mood disorder who was seen today. Chart was reviewed and case was discussed with the staff. She was seen to be anxious, withdrawn, and rather seclusive to herself. Meanwhile, she has been taking the medications and tolerating them fairly well with no reported side effects. MENTAL STATUS EXAMINATION Young white female who is casually dressed with fair personal hygiene, appears to be in no acute distress or discomfort. She was awake and alert on interaction with intact orientation. Her mood is anxious with congruent affect. She denies any suicidal or homicidal ideation. Her insight and judgment remain slightly impaired. TREATMENT PLAN 1. We will continue her on her current treatment protocol. We will monitor her response to the medications and make further adjustments as needed. 2. We will continue to follow up. Dictated by... Modesto Morelos M.D. IAA/bzg TD: 07/04/2016 05:43 JOB #: [id number] [facility] PROGRESS NOTES Page 1 of 1 X Modesto Morelos MD PROGRESS NOTE
[2016-07-01 09:46] LABS: BASOPHIL% 0.6 % (0-2.5); EOSINOPHIL# 0.3 X10e3 (0-0.7); EOSINOPHIL% 3.6 % (0.0-7.0); HEMATOCRIT 37.8 % (35.0-45.0); HEMOGLOBIN 11.8 gm/dL (12.0-16.0); LYMPHOCYTE# 2.1 X10e3 (1.0-3.5); LYMPHOCYTE% 28.2 % (17.0-45.0); MEAN CORPUSCULAR HEMOGLOBIN 27.2 PG (28-34); MEAN CORPUSCULAR HGB CONC 31.2 g/dL (30-36); MONOCYTE# 0.5 X10e3 (0-1.0); NEUTROPHIL# 4.6 X10e3 (1.5-7.1); NEUTROPHIL% 60.6 % (40-75); PLATELET COUNT 211 X10e3 (140-420); RED BLOOD COUNT 4.34 X10e (3.90-5.30); RED CELL DISTRIBUTION WIDTH 17.8 % (11.0-15.5); WHITE BLOOD COUNT 7.6 X10e3 (4.0-10.5)
[2016-07-01 10:01] LABS: DIFF IND NO
[2016-07-01 10:30] LABS: ALBUMIN SERUM 3.8 g/dL (3.5-5.0); BILIRUBIN,TOTAL 0.6 mg/dL (0.2-2.0); CALCIUM SERUM 9.2 mg/dL (8.4-10.2); CREATININE SERUM 0.7 mg/dL (0.6-1.4); PROTEIN TOTAL SERUM 6.7 g/dL (6.0-8.3)
[2016-07-01 10:32] LABS: POTASSIUM 4.8 mmol/L (3.5-5.1)
[2016-07-05 09:42] LABS: URINE APPEARANCE CLOUDY; URINE BILIRUBIN NEG (NEG); URINE BLOOD 2+ (NEG); URINE COLOR YELLOW; URINE GLUCOSE NEG (NEG); URINE KETONE NEG (NEG); URINE LEUKOCYTE ESTERASE 3+ (NEG); URINE NITRATE NEG (NEG); URINE PH 5.5 (5-8); URINE PROTEIN NEG (NEG); URINE SPECIFIC GRAVITY 1.019 (1.003-1.035); URINE UROBILINOGEN 0.2 MG/DL (NEG)
[2016-07-05 09:56] LABS: URINE BACTERIA AUWI 4+ (NEGATIVE); URINE SQUAMOUS EPITHELIAL CELL MOD /[HPF]; UWBCS1 AUWI 100-200 (0-5)
[2016-07-05 10:14] LABS: AMPHETAMINE NEG (NEG); BARBITURATES NEG (NEG); BENZODIAZEPINES NEG (NEG); COCAINE NEG (NEG); MARIJUANA NEG (NEG); OPIATES NEG (NEG); TRICYCLIC ANTIDEPRESSANTS NEG (NEG); U METHADONE NEG (NEG); URINE MUCUS PRESENT
== END 2016-07-05 09:15 | DRG 885 ==
LOC: P1E 14:16
PROVIDERS: Psychiatry & Neurology Psychiatry
DX: F33.1 Major depressive disorder, recurrent, moderate (principal); F15.20 Other stimulant dependence, uncomplicated; R45.851 Suicidal ideations; G40.909 Epilepsy, unspecified, not intractable, without status epilepticus; F41.9 Anxiety disorder, unspecified; F17.210 Nicotine dependence, cigarettes, uncomplicated; J30.9 Allergic rhinitis, unspecified
CPT/HCPCS: 80053; 80307; 81003; 85025

== ENCOUNTER 2016-07-06 11:23 | Emergency (ER) | payer OTHER ==
[2016-07-06 12:44] LABS: BASOPHIL% 0.5 % (0-2.5); EOSINOPHIL% 0.5 % (0.0-7.0); HEMOGLOBIN 10.6 gm/dL (12.0-16.0); LYMPHOCYTE# 1.1 X10e3 (1.0-3.5); LYMPHOCYTE% 17.8 % (17.0-45.0); MEAN CELL VOLUME 85.1 FL (83-96); MEAN CORPUSCULAR HEMOGLOBIN 27.3 PG (28-34); MEAN CORPUSCULAR HGB CONC 32.1 g/dL (30-36); MEAN PLATELET VOLUME 9.5 FL (6.5-11.5); MONOCYTE# 0.3 X10e3 (0-1.0); MONOCYTE% 5.4 % (3.0-12.0); NEUTROPHIL# 4.9 X10e3 (1.5-7.1); NEUTROPHIL% 75.8 % (40-75); PLATELET COUNT 187 X10e3 (140-420); RED BLOOD COUNT 3.87 X10e (3.90-5.30); RED CELL DISTRIBUTION WIDTH 17.8 % (11.0-15.5); WHITE BLOOD COUNT 6.4 X10e3 (4.0-10.5)
[2016-07-06 12:46] LABS: DIFF IND NO
[2016-07-06 13:01] LABS: PARTIAL THROMBOPLASTIN TIME 30.7 SECONDS (23.5-31.3); PROTHROMBIN TIME (PATIENT) 10.7 SECONDS (9.6-11.5)
[2016-07-06 13:09] LABS: ALBUMIN SERUM 4.4 g/dL (3.5-5.0); BILIRUBIN, DIRECT 0.1 mg/dL (0.0-0.2); BILIRUBIN,INDIRECT 0.1 mg/dL (0.0-0.9); BILIRUBIN,TOTAL 0.2 mg/dL (0.2-2.0); CALCIUM SERUM 9.1 mg/dL (8.4-10.2); CREATININE SERUM 0.5 mg/dL (0.6-1.4); GLOM FILT RATE Estimated 126.3 mL/min (>60); POTASSIUM 3.2 mmol/L (3.5-5.1); PROTEIN TOTAL SERUM 7.1 g/dL (6.0-8.3)
== END 2016-07-06 14:37 | disposition home or self-care (01) ==
LOC: CFTX 11:23 → CED 11:23 → CFTX 12:25
PROVIDERS: Nurse Practitioner
DX: R21 Rash and other nonspecific skin eruption (principal); R56.9 Unspecified convulsions; F17.210 Nicotine dependence, cigarettes, uncomplicated
CPT/HCPCS: 36415; 80048; 80076; 84703; 85025; 85610; 85730; 87040; 99283

== ENCOUNTER 2016-08-08 07:07 | Emergency (ER) | payer OTHER ==
--- NOTE | ~2016-08-08 | CR150 ---
[facility] A Service of [facility] & [facility] RADIOLOGY TEXT RESULTS PATIENT: VERONIQUE RODRIGUEZ LOCATION: [facility] : 84 UNIT #: [id number] AGE: [address]: Apoorva Renteria APRN SEX: F ORDER DR: [id number] [facility] [address] [place], [place] [address] [id number] MR#: [id number] Acc #: [id number] NAME: VERONIQUE RODRIGUEZ. : 1980 SEX: F STUDY DATE/TIME: 08/08/2016 7:34 UNIT: [facility] ROOM: STUDY DESCRIPTION: CR Hip Min 2 Views Lt Attending Physician: Apoorva Renteria A.P.R.N. Ordering Physician: Er [facility]icians Primary Care Physician: Primary Care Physician No MEDICAL IMAGING REPORT This report is preliminary unless electronic signature is present EXAM Left hip 08/08/2016. [facility] HISTORY 36-year-old woman left hip pain past 2 days no known injury. COMPARISON: None. FINDINGS AP and frog-leg lateral views of the left hip demonstrate preservation of the joint space. Cortex is intact and mineralization preserved. No cystic erosions and no calcium deposition. Soft tissues appear normal. AP pelvis is unremarkable. IMPRESSION Negative left hip Dictated by... Wong Ingram M.D. THIS IS AN ELECTRONICALLY VERIFIED REPORT Wong Ingram M.D. at 08/08/2016 12:26 PM CATALINA/luis alfredo TD: 08/08/2016 09:45 JOB #: [id number] MEDICAL IMAGING REPORT Page 1 of 1 COPY
== END 2016-08-08 08:50 | disposition home or self-care (01) ==
LOC: CED 07:07
DX: S76.012A Strain of muscle, fascia and tendon of left hip, initial encounter (principal); F17.200 Nicotine dependence, unspecified, uncomplicated; Z98.51 Tubal ligation status; Y93.01 Activity, walking, marching and hiking
CPT/HCPCS: 73502; 99283

== ENCOUNTER 2016-09-02 00:35 | Emergency (ER) | payer OTHER ==
[~2016-09-02] VITALS: Ht 165.1 cm; Wt 49.9 kg
== END 2016-09-02 02:47 | disposition home or self-care (01) ==
LOC: CED 00:35
DX: M25.552 Pain in left hip (principal); M25.551 Pain in right hip; F15.10 Other stimulant abuse, uncomplicated; F17.210 Nicotine dependence, cigarettes, uncomplicated
CPT/HCPCS: 99283

== ENCOUNTER 2016-09-21 03:53 | Emergency (ER) | payer OTHER ==
[~2016-09-21] VITALS: Ht 165.1 cm; Wt 54.4 kg
[2016-09-21 04:55] LABS: URINE SOURCE CLEAN CATCH
[2016-09-21 05:01] LABS: BASOPHIL# 0.1 X10e3 (0-0.3); BASOPHIL% 1.1 % (0-2.5); EOSINOPHIL# 0.1 X10e3 (0-0.7); EOSINOPHIL% 1.6 % (0.0-7.0); HEMATOCRIT 32.2 % (35.0-45.0); HEMOGLOBIN 10.3 gm/dL (12.0-16.0); LYMPHOCYTE# 1.7 X10e3 (1.0-3.5); LYMPHOCYTE% 34.1 % (17.0-45.0); MEAN CELL VOLUME 81.8 FL (83-96); MEAN CORPUSCULAR HEMOGLOBIN 26.1 PG (28-34); MEAN CORPUSCULAR HGB CONC 31.9 g/dL (30-36); MONOCYTE# 0.5 X10e3 (0-1.0); MONOCYTE% 10.7 % (3.0-12.0); NEUTROPHIL# 2.6 X10e3 (1.5-7.1); NEUTROPHIL% 52.5 % (40-75); PLATELET COUNT 120 X10e3 (140-420); RED BLOOD COUNT 3.94 X10e (3.90-5.30); RED CELL DISTRIBUTION WIDTH 18.1 % (11.0-15.5); WHITE BLOOD COUNT 4.9 X10e3 (4.0-10.5)
[2016-09-21 05:02] LABS: DIFF IND NO
[2016-09-21 05:29] LABS: URINE BILIRUBIN NEG (NEG); URINE BLOOD NEG (NEG); URINE GLUCOSE NORM (NORM); URINE KETONE NEG (NEG); URINE LEUKOCYTE ESTERASE 1+ (NEG); URINE NITRATE NEG (NEG); URINE PROTEIN NEG (NEG); URINE SPECIFIC GRAVITY 1.015 (1.003-1.035); URINE UROBILINOGEN NORM (NORM)
[2016-09-21 05:32] LABS: URINE APPEARANCE SL HAZY; URINE COLOR YELLOW
[2016-09-21 05:34] LABS: AMPHETAMINE POS (NEG); BARBITURATES NEG (NEG); BENZODIAZEPINES NEG (NEG); COCAINE NEG (NEG); MARIJUANA NEG (NEG); OPIATES NEG (NEG); TRICYCLIC ANTIDEPRESSANTS NEG (NEG); U METHADONE NEG (NEG)
[2016-09-21 05:39] LABS: ALBUMIN SERUM 3.8 g/dL (3.5-5.0); ALKALINE PHOSPHATASE 76 U/L (32-92); ALT (SGPT) 12 U/L (10-40); AST (SGOT) 15 U/L (10-42); BILIRUBIN,TOTAL 0.1 mg/dL (0.2-2.0); BLOOD UREA NITROGEN 9 mg/dL (9-23); BUN/CREATININE RATIO 12.85; CALCIUM SERUM 8.9 mg/dL (8.4-10.2); CARBON DIOXIDE 25 mmol/L (22-31); CHLORIDE 104 mmol/L (100-111); CREATININE SERUM 0.7 mg/dL (0.6-1.4); GLUCOSE FASTING 94 mg/dL (70-110); POTASSIUM 3.5 mmol/L (3.5-5.1); SALICYLATE <4.0 mg/dL; SODIUM 136 mmol/L (135-145)
[2016-09-21 05:40] LABS: ACETAMINOPHEN <10 ug/mL; ALCOHOL BLOOD <5 mg/dL (0); BILIRUBIN, DIRECT <0.1 mg/dL (0.0-0.2)
[2016-09-21 05:53] LABS: URINE SQUAMOUS EPITHELIAL CELL MODERATE /[HPF]
[2016-09-21 06:00] LABS: CULTURE INDICATED? YES
== END 2016-09-21 07:29 ==
LOC: CED 03:53
PROVIDERS: Nurse Practitioner
DX: R45.851 Suicidal ideations (principal); F19.10 Other psychoactive substance abuse, uncomplicated; F17.210 Nicotine dependence, cigarettes, uncomplicated; F41.9 Anxiety disorder, unspecified; Z98.51 Tubal ligation status; G40.909 Epilepsy, unspecified, not intractable, without status epilepticus; Z79.899 Other long term (current) drug therapy
CPT/HCPCS: 36415; 80048; 80076; 80307; 81003; 84703; 85025; 87086; 87088; 87186; 99285; G0480

== ENCOUNTER 2016-09-21 08:03 | Inpatient (IN) | payer OTHER ==
[~2016-09-21] VITALS: Ht 165.1 cm; Wt 49.9 kg
--- NOTE | ~2016-09-21 | HP ---
Unit #: [id number] #: [id number] Patient: SHERIN RODRIGUEZ [id number] [place] [address] [id number] I MR#: [id number] NAME: SHERIN RODRIGUEZ. ROOM: [facility] Age: 36 Sex: F Admission Date: 09/21/2016 : 1980 Attending Physician: Jared Starks M.D. Admitting Physician: Jared Starks M.D. Primary Care Physician: Primary Care Physician No HISTORY AND PHYSICAL HISTORY OF PRESENT ILLNESS Sherin is a 36 year old admitted to [address] [place] [address] because of her polysubstance abuse which includes IV heroin and methamphetamine. PAST MEDICAL HISTORY 1. Long history of illicit substance abuse to include IV drugs. 2. Seizure disorder. 3. Poor dental hygiene. 4. History of anemia. PAST SURGICAL HISTORY Tubal ligation. ALLERGIES No known drug allergies. SOCIAL HISTORY Smokes 1 pack per day. Drinks alcohol on occasion. Admits to a long history of illicit substance abuse. FAMILY HISTORY Medically noncontributory. REVIEW OF SYSTEMS CONSTITUTIONAL: No fever or chills. HEENT: Denies any sore throat, ear pain or runny nose. CARDIOVASCULAR: Denies chest pain, irregular heart rhythm or palpitations. CHEST: Denies shortness of breath or cough. No hemoptysis. GASTROINTESTINAL: Denies nausea, vomiting, diarrhea or chronic constipation. ENDOCRINE: Denies history of increased thirst or urination. No recent significant weight loss or gain. GENITOURINARY: Denies dysuria, frequency, or hematuria. SKIN: Denies any rashes. HEMATOLOGIC: Denies history of increased bleeding or bruising. MUSCULOSKELETAL: Denies any hot, swollen joints. No generalized muscle pain. NEUROLOGIC: Denies problems with vision or speech. No frequent, severe headaches. No numbness, tingling or weakness in any extremities. Denies loss of bladder or bowel control. CURRENT MEDICATIONS 1. Detox protocol. Unit #: [id number] #: [id number] Patient: SHERIN RODRIGUEZ 2. Keppra 1000 mg b.i.d. PHYSICAL EXAMINATION GENERAL: Alert, thin, in no apparent distress. VITAL SIGNS: Blood pressure 110/76, heart rate 92, respirations 16, temperature 98.6. WEIGHT: 110. HEIGHT: 5 feet 5 inches. SKIN: Warm and dry without rash or lesion. HEENT: Normocephalic. TMs not viewed. Oral and nasal passages clear. Conjunctivae clear. PERRLA. EOMs intact. DENTAL: Poor dental hygiene with numerous rotting teeth. NECK: Supple without lymphadenopathy or thyromegaly. HEART: Regular rate and rhythm without murmur. LUNGS: Clear. ABDOMEN: Soft, nontender. : Not done. EXTREMITIES: No evidence of cyanosis, clubbing or edema. Moves all without focal deficit. NEUROLOGICAL: Grossly within normal limits. Cranial Nerves: II: Visual reaves are intact. III, IV AND : Extraocular movements are intact. Pupils are equal, round and reactive to light. V: Facial sensation is grossly normal. VII: Facial movements and expression are normal. VIII: Auditory acuity grossly intact. IX, X: Uvula is midline. Phonation is normal. XI: Patient shrugs shoulders and turns head normally. XII: Tongue protrudes in the midline. Sensory and Motor Function: Sensory and motor sensation is grossly normal. Motor: moves all extremities well. Coordination: Gait is normal. Deep Tendon Reflexes: Intact. IMPRESSION Psychiatric admission. RECOMMENDATIONS PSYCHIATRIC: Per psychiatrist. MEDICAL: See no contraindication to participate in facility's activities. MEDICAL PROGNOSIS Good. MEDICAL CONDITION Stable. Dictated by... Pam Mondragon PAlmaAAlma-[facility]ilton. for Elisa Schuster/emma TD: 09/21/2016 16:24 JOB #: [id number] Unit #: [id number] #: [id number] Patient: SHERIN RODRIGUEZ HISTORY AND PHYSICAL Page 1 of 1 X Pam Mondragon HISTORY AND PHYSICAL
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
--- NOTE | ~2016-09-21 | DS ---
Unit #: [id number] #: [id number] Patient: VERONIQUE [facility]ODRIGUEZ [id number] [facility] [address] [place] [address] [id number] I MR#: [id number] NAME: VERONIQUE RODRIGUEZ ROOM: [facility] Age: 36 Sex: F Admission Date: 09/21/2016 : 1980 Discharge Date: 09/24/2016 Attending Physician: Modesto Morelos M.D. Primary Care Physician: Primary Care Physician No DISCHARGE SUMMARY IDENTIFYING DATA Ms. Rodriguez is a 36-year-old white female, who was self-referred to the hospital. DISCHARGE DIAGNOSES Psychiatric major depressive disorder, recurrent, moderate, without psychotic features; opioid dependence, moderate and acute withdrawals; methamphetamine dependence, moderate. Medical: Seizure disorder. Stressors: Moderate psychosocial stressors. HISTORY OF PRESENT ILLNESS Please copy and paste from initial psychiatric evaluation. PAST PSYCHIATRIC HISTORY Please copy and paste from initial psychiatric evaluation. PAST MEDICAL HISTORY Please copy and paste from initial psychiatric evaluation. HOSPITAL COURSE The patient was admitted to the adult chemical dependency and psychiatric unit at [facility] and was oriented to the hospital environment. Routine p.r.n. medications were initiated and she was started back on her home medications and detox protocol for opioids was initiated as well and she was closely monitored. She was taking the medications regularly and was tolerating them fairly well and was able to come out of the detox without any complications and was willing to continue treatment on an outpatient basis and as such, it was decided that she will be discharged home and will continue treatment on an outpatient basis. DISCHARGE MEDICATIONS None. DISCHARGE CONDITION Stable. PROGNOSIS Fair. Dictated by... Modesto Morelos M.D. Unit #: [id number] #: [id number] Patient: VERONIQUE RODRIGUEZ IAA/modl TD: 09/25/2016 12:16 JOB #: [id number] DISCHARGE SUMMARY Page 1 of 1 X Modesto Morelos MD X DISCHARGE SUMMARY
--- NOTE | ~2016-09-21 | PN ---
Unit #: [id number] #: [id number] Patient: VERONIQUE RODRIGUEZ [id number] [facility] [address] [place] [address] [id number] I MR#: [id number] NAME: VERONIQUE RODRIGUEZ. ROOM: P211 Age: 36 Sex: F Admission Date: 09/21/2016 : 1980 Attending Physician: Jared Starks M.D. Admitting Physician: Jared Starks M.D. Primary Care Physician: Primary Care Physician Catia BEASLEY PROGRESS NOTES DATE 09/22/2016 DISCUSSION The patient is abed today, continuing to complain of significant discomfort from opioid withdrawal. We continue current treatment. Dr. Morelos may assume her care tomorrow. Dictated by... Jared Starks M.D. CB/bzg TD: 09/22/2016 14:41 JOB #: [id number] [facility] PROGRESS NOTES Page 1 of 1 X Jared Starks MD X PROGRESS NOTE
--- NOTE | ~2016-09-21 | PN ---
Unit #: [id number] #: [id number] Patient: VERONIQUE ALEXIS [id number] [facility] [address] [place] [address] [id number] I MR#: [id number] NAME: VERONIQUE ALEXIS. ROOM: [facility] [place] Age: 36 Sex: F Admission Date: 09/21/2016 : 1980 Attending Physician: Modesto Morelos M.D. Admitting Physician: Modesto Morelos M.D. Primary Care Physician: Primary Care Physician Catia BEASLEY PROGRESS NOTES DATE September 23, 2016 DISCUSSION Ms. Alexis is a 36-year-old white female, who was seen today and chart was reviewed and the case was discussed with the staff. The patient has been doing fairly well with no agitation or irritability, and has been calm but has been having some persistent depressive symptoms, and has been isolative and seclusive to herself. MENTAL STATUS EXAMINATION Young white female, who was casually dressed with fair personal hygiene and appears to be in no acute distress or discomfort. The patient was awake and alert with intact orientation. Her mood is anxious with a congruent affect. The patient denies any suicidal or homicidal ideations. Her insight and judgment remain slightly impaired. TREATMENT PLAN 1. We will continue her on her current medications and treatment protocol, and will monitor her response to the medications, and make further adjustments as needed. 2. We will continue to followup. Dictated by... Elisa Patino/luis TD: 09/23/2016 09:23 JOB #: [id number] Unit #: [id number] #: [id number] Patient: VERONIQUE ALEXIS GALE PROGRESS NOTES Page 1 of 1 X Modesto Morelos MD PROGRESS NOTE
--- NOTE | ~2016-09-21 | A ---
[facility] Nutrition Therapy DATE: 09/23/16 Patient: VERONIQUE RODRIGUEZ Physician: RODGER Address: NO PERMANT ADDRESSR Room/Bed: [address], Zip: [place] [address] Admit Date: 09/21/16 Date of : [birth year] Height: 5 5 Weight: 109 49.19651 NUTRITIONAL ASSESSMENT: REASON: UNINTENTIONAL WEIGHT LOSS, POSSIBLE LOW BMI PATIENT ADMITTED FOR HEROIN AND METH DETOX, SI PMH: SEIZURE DISORDER Anthropometrics: HT: 65", WT: 110-120#, BMI: 18.3-20 Labs: 09/22/16- ALL NUTRITIONAL LABS WNL Meds: KATE DETOX PROTOCOL Assessment: PATIENT IS A 36 Y/O FEMALE ADMITTED FOR HEROIN AND METH DETOX AND SI. PATIENT IS CURRENTLY UNEMPLOYED, ON DISABILITY, HOMELESS, SMOKES 1/2 PPD, HAS DAILY HEROIN AND METH USE, AND A HX OF COCAINE AND MARIJUANA USE. PATIENT IS CURRENTLY ON A 72 HOUR HOLD AND SHE HAS A HX OF INPATIENT PSYCH AND CHEMICAL DEPENDENCY TREATMENT. UPON ADMIT PATIENT STATED A POOR APPETITE WITH A 20# WEIGHT LOSS X 2 WEEKS. WEIGHT HX PER [employer] SHOWS LARGE FLUCTUATIONS IN WEIGHT. PATIENT'S WEIGHT UPON ADMIT IS RECORDED AT 110 AND 120#. SHE HAS A UBW AROUNG 110-120#. PATIENT'S WEIGHT ON 08/08/16 WAS 120# AND HER WEIGHT ON 09/02/16 WAS 110#. NURSING REPORTS GOOD PO INTAKES. THERE ARE NO SKIN OR GI ISSUES NOTED ATT, AND PATIENT IS ACTIVELY DETOXING. PATIENT IS ON A REGULAR DIET WITH NO CAFFEINE AND LARGE PORTION ENTREES. Dx: POSSIBLE UNINTENTIONAL WEIGHT LOSS R/T CURRENT CONDITION, DRUG USE AEB SELF-REPORTED WEIGHT LOSS, NUTRITIONAL RISK POINT Intervention: REGULAR DIET WITH NO CAFFEINE, LARGE ENTREES, MEDS PER MD, DETOX, PSYCH Monitoring, Evaluation and Goals: 1. ADEQUATE PO INTAKES >50% OF MEALS 2. PREVENT, CORRECT MICRO/MACRO NUTRIENT DEFICIENCIES 3. WEIGHT; PREVENT FURTHER WEIGHT LOSS MONITOR: WEIGHTS, LABS, PO/FLUID INTAKES Recommendations: 1. CONTINUE REGULAR DIET WITH NO CAFFEINE AND LARGE PORTION ENTREES TOLERATED. OFFER SNACKS BETWEEN MEALS 2. ENCOURAGE ADEQUATE PO AND FLUID INTAKES [facility] Nutrition Therapy DATE: 09/23/16 Patient: VERONIQUE RODRIGUEZ Physician: RODGER Address: NO PERMANT ADDRESSR Room/Bed: [address], Zip: [place] [address] Admit Date: 09/21/16 Date of : [birth year] Height: 5 5 Weight: 109 49.59752 3. OBTAIN WEIGHTS ROUTINELY (EVERY 3-4 DAYS) RD TO F/U PER PROTOCOL AND PRN R/T PATIENT MILDLY COMPROMISED Respectfully, SANCHEZ SOLIS RD, LD Food and Nutritional Services [facility] cc: client file
[2016-09-22 09:47] LABS: BASOPHIL# 0.1 X10e3 (0-0.3); BASOPHIL% 1.4 % (0-2.5); EOSINOPHIL# 0.1 X10e3 (0-0.7); EOSINOPHIL% 3.6 % (0.0-7.0); HEMATOCRIT 34.1 % (35.0-45.0); HEMOGLOBIN 10.8 gm/dL (12.0-16.0); LYMPHOCYTE# 1.5 X10e3 (1.0-3.5); LYMPHOCYTE% 38.3 % (17.0-45.0); MEAN CELL VOLUME 81.6 FL (83-96); MEAN CORPUSCULAR HEMOGLOBIN 25.9 PG (28-34); MEAN CORPUSCULAR HGB CONC 31.8 g/dL (30-36); MEAN PLATELET VOLUME 9.5 FL (6.5-11.5); MONOCYTE# 0.4 X10e3 (0-1.0); MONOCYTE% 10.1 % (3.0-12.0); NEUTROPHIL# 1.8 X10e3 (1.5-7.1); NEUTROPHIL% 46.6 % (40-75); PLATELET COUNT 147 X10e3 (140-420); RED BLOOD COUNT 4.18 X10e (3.90-5.30); RED CELL DISTRIBUTION WIDTH 18.1 % (11.0-15.5); WHITE BLOOD COUNT 3.9 X10e3 (4.0-10.5)
[2016-09-22 09:55] LABS: ALBUMIN SERUM 3.6 g/dL (3.5-5.0); BILIRUBIN,TOTAL 0.3 mg/dL (0.2-2.0); BUN/CREATININE RATIO 18.57; CALCIUM SERUM 8.8 mg/dL (8.4-10.2); CREATININE SERUM 0.7 mg/dL (0.6-1.4); POTASSIUM 4.5 mmol/L (3.5-5.1); PROTEIN TOTAL SERUM 6.6 g/dL (6.0-8.3)
[2016-09-22 09:58] LABS: DIFF IND NO
[2016-09-27 01:17] LABS: HA AB IGM (HEPPAN) Nonreactive (()); HB CORE AB IGM (HEPPAN) Nonreactive (Nonreactive); HB S AG (HEPPAN) Nonreactive (Nonreactive); HEP C AB (HEPPAN) Nonreactive (Nonreactive); HEP C AB SIGNAL TO CUTOFF 0.02 ratio (<1.00)
== END 2016-09-24 12:48 | disposition home or self-care (01) | DRG 885 ==
LOC: P2S 08:03
PROVIDERS: Specialist
PROC: HZ2ZZZZ Detoxification Services for Substance Abuse Treatment (ICD-10-PCS; principal; 2016-09-21)
DX: F33.1 Major depressive disorder, recurrent, moderate (principal); F15.20 Other stimulant dependence, uncomplicated; F11.23 Opioid dependence with withdrawal; F39 Unspecified mood [affective] disorder; G40.909 Epilepsy, unspecified, not intractable, without status epilepticus; F17.210 Nicotine dependence, cigarettes, uncomplicated
CPT/HCPCS: 80053; 80074; 84703; 85025; 87806

== ENCOUNTER 2016-09-27 09:25 | Emergency (ER) | payer OTHER ==
[~2016-09-27] VITALS: Ht 165.1 cm; Wt 49.9 kg
--- NOTE | ~2016-09-27 | CT2 ---
[facility] A Service of [facility] RADIOLOGY TEXT RESULTS PATIENT: VERONIQUE RODRIGUEZ LOCATION: [facility] : 82 UNIT #: [id number] AGE: [address]: Ryan Gómez MD SEX: F ORDER DR: [id number] [facility] [address] [place], [place] [address] [id number] MR#: [id number] Acc #: [id number] NAME: VERONIQUE RODRIGUEZ. : 1980 SEX: F STUDY DATE/TIME: 09/27/2016 11:42 UNIT: [facility] ROOM: STUDY DESCRIPTION: CT Abd and Pelv W Cont Attending Physician: Ryan Gómez M.D. Ordering Physician: Ryan Gómez M.D. MEDICAL IMAGING REPORT This report is preliminary unless electronic signature is present EXAM CT abdomen and pelvis with contrast 09/27/2016 HISTORY Right-side abdominal pain for [address] abdomen and pelvis with contrast 02/27/2012. TECHNIQUE 5 mm axial images from the lung bases through the lesser trochanters after intravenous and enteric contrast administration. Sagittal and coronal reformatted images were obtained. This CT exam was performed with one or more of the following radiation dose reduction techniques: automatic exposure control, adjustment of mA and/or kV according to patient size, and iterative reconstruction. FINDINGS ABDOMEN: 1.3 cm low-density lesion in the anterior right hepatic lobe favored to represent small cyst or hemangioma, unchanged from 02/27/2012. A 5 mm low-density lesion in the posterior right hepatic lobe favored to represent a small flash-fill hemangioma, as can be seen on the 02/27/2012 exam. Gallbladder, spleen, pancreas, adrenals and left kidney are normal. There is fluid appearing to arise from the right upper renal pole extending into the hepatorenal fossa, measuring at least 5.3 cm AP x 3.1 cm transverse. The right kidney, curiously, has developed an aberrant axis rotation. The right renal hilum and its vessels under directed posteriorly and superiorly. There does appear to be distension of the right renal pelvis. There is also some abnormal fluid within the hepatorenal fossa measuring nearly 5 x 3 cm in aggregate, nonspecific, could represent sequelae of ruptured marty. However, no active IV contrast extravasation is seen. The right renal vein and the renal artery [facility] A Service of [facility] RADIOLOGY TEXT RESULTS PATIENT: VERONIQUE RODRIGUEZ LOCATION: [facility] : 82 UNIT #: [id number] AGE: [address]: Ryan Gómez MD SEX: F ORDER DR: do appear opacified and patent, and the right renal parenchyma appears to enhance symmetrically when compared to the left. No extrinsic mass lesion or abnormal hepatic enlargement is seen to be a nidus for the right renal malrotation. The appendix is normal. There is sltz-mf-xaontosm colonic stool burden. No pathologic adenopathy is identified. PELVIS: Urinary bladder, uterus and rectum normal. No pelvic adenopathy or free fluid. IMPRESSION 1. Acquired malrotation of the right kidney in comparison to the 02/27/2012 examination. The right renal hilum is now aberrantly oriented posteriorly-superiorly. The nidus for this is uncertain, as there was no preexisting ptosis of the kidney, and no extrinsic mass lesion is seen. 2. There is no evidence of renal ischemia at this time. 3. There is mild distension of the right renal pelvis, and there is a small amount of fluid within the hepatorenal fossa, which could indicate recent forniceal or calyceal rupture. No active IV contrast extravasation is seen. 4. Probable tiny cyst or hemangioma is within the liver, unchanged from 2013. 5. The appendix is normal. Dr. Gómez and I have discussed the major findings prior to the time of this dictation today, 09/27/2016 at 12:49 p.m. Dictated by... Shiloh Eason M.D. THIS IS AN ELECTRONICALLY VERIFIED REPORT Shiloh Eason M.D. at 09/28/2016 8:43 AM CIERRA/ilan TD: 09/27/2016 15:51 JOB #: [id number] MEDICAL IMAGING REPORT Page 1 of 1 COPY
[2016-09-27 09:53] LABS: URINE SOURCE CLEAN CATCH
[2016-09-27 09:59] LABS: URINE APPEARANCE CLOUDY; URINE BILIRUBIN NEG (NEG); URINE BLOOD 3+ (NEG); URINE COLOR YELLOW; URINE GLUCOSE NEG (NEG); URINE KETONE NEG (NEG); URINE LEUKOCYTE ESTERASE 2+ (NEG); URINE NITRATE NEG (NEG); URINE PROTEIN 1+ (NEG); URINE SPECIFIC GRAVITY 1.026 (1.003-1.035)
[2016-09-27 10:01] LABS: CULTURE INDICATED? YES; URBCS1 AUWI INNUM /[HPF] (0-2); URINE BACTERIA AUWI 1+ (NEGATIVE); URINE SQUAMOUS EPITHELIAL CELL FEW /[HPF]; UWBCS1 AUWI 25-50 (0-5)
[2016-09-27 10:02] LABS: BASOPHIL% 0.9 % (0-2.5); EOSINOPHIL# 0.1 X10e3 (0-0.7); EOSINOPHIL% 1.8 % (0.0-7.0); HEMATOCRIT 33.9 % (35.0-45.0); HEMOGLOBIN 10.9 gm/dL (12.0-16.0); LYMPHOCYTE# 1.2 X10e3 (1.0-3.5); LYMPHOCYTE% 22.9 % (17.0-45.0); MEAN CORPUSCULAR HGB CONC 32.2 g/dL (30-36); MEAN PLATELET VOLUME 8.4 FL (6.5-11.5); MONOCYTE# 0.4 X10e3 (0-1.0); MONOCYTE% 7.8 % (3.0-12.0); NEUTROPHIL# 3.5 X10e3 (1.5-7.1); NEUTROPHIL% 66.6 % (40-75); PLATELET COUNT 161 X10e3 (140-420); RED BLOOD COUNT 4.19 X10e (3.90-5.30); RED CELL DISTRIBUTION WIDTH 17.8 % (11.0-15.5); WHITE BLOOD COUNT 5.3 X10e3 (4.0-10.5)
[2016-09-27 10:03] LABS: DIFF IND NO
[2016-09-27 10:32] LABS: ALBUMIN SERUM 4.1 g/dL (3.5-5.0); BILIRUBIN, DIRECT 0.1 mg/dL (0.0-0.2); BILIRUBIN,INDIRECT 0.5 mg/dL (0.0-0.9); BILIRUBIN,TOTAL 0.6 mg/dL (0.2-2.0); BUN/CREATININE RATIO 22.85; CALCIUM SERUM 9.5 mg/dL (8.4-10.2); CREATININE SERUM 0.7 mg/dL (0.6-1.4); PROTEIN TOTAL SERUM 7.7 g/dL (6.0-8.3)
[2016-09-27 15:26] LABS: URINE SOURCE CLEAN CATCH
[2016-09-27 15:31] LABS: URINE APPEARANCE CLEAR; URINE BILIRUBIN NEG (NEG); URINE BLOOD NEG (NEG); URINE COLOR YELLOW; URINE GLUCOSE NEG (NEG); URINE KETONE NEG (NEG); URINE LEUKOCYTE ESTERASE NEG (NEG); URINE NITRATE NEG (NEG); URINE PH 5.5 (5-8); URINE PROTEIN NEG (NEG); URINE SPECIFIC GRAVITY 1.062 (1.003-1.035); URINE UROBILINOGEN 0.2 MG/DL (NEG)
[2016-09-27 15:40] LABS: CULTURE INDICATED? NO
== END 2016-09-27 15:57 | disposition home or self-care (01) ==
LOC: CED 09:25
PROVIDERS: Emergency Medicine
DX: Q63.2 Ectopic kidney (principal); R56.9 Unspecified convulsions; F17.200 Nicotine dependence, unspecified, uncomplicated
CPT/HCPCS: 36415; 74177; 80048; 80076; 81003; 82150; 83690; 84703; 85025; 87086; 96361; 96374; 96375; 99284; J2270; J2405; Q9967

== ENCOUNTER 2016-09-30 01:52 | Emergency (ER) | payer OTHER ==
[~2016-09-30] VITALS: Ht 162.6 cm; Wt 49.9 kg
--- NOTE | ~2016-09-30 | EKG ---
PATIENT: VERONIQUE RODRIGUEZ UNIT #: [id number] Ventricular Rate: 66 BPM Atrial Rate: 66 BPM P-R Interval: 150 ms QRS Duration: 84 ms Q-T Interval: 404 ms QTC Calculation(Bezet): 423 ms P [place]: 41 degrees Calculated R [place]: 57 degrees Calculated T [place]: 51 degrees Diagnosis Line: Normal sinus rhythm Diagnosis Line: Normal ECG Diagnosis Line: When compared with ECG of 30-SEP-2016 02:05, Diagnosis Line: (unconfirmed) Diagnosis Line: lead switch has been corrected Diagnosis Line: Confirmed by JAC REDDY MD ([id number]) on 09/30/2016 Diagnosis Line: 4:58:05 PM INTERPRETING MD: MAUREEN ESPINOZA
--- NOTE | ~2016-09-30 | EKG ---
PATIENT: VERONIQUE RODRIGUEZ UNIT #: [id number] Ventricular Rate: 88 BPM Atrial Rate: 88 BPM P-R Interval: 140 ms QRS Duration: 76 ms Q-T Interval: 362 ms QTC Calculation(Bezet): 438 ms Calculated R [place]: 124 degrees Calculated T [place]: 121 degrees Diagnosis Line: Normal sinus rhythm Diagnosis Line: Suspect arm lead reversal, interpretation Diagnosis Line: assumes no reversal Diagnosis Line: Abnormal ECG Diagnosis Line: When compared with ECG of 05-MAY-2015 22:59, Diagnosis Line: QRS axis Shifted right Diagnosis Line: Lateral infarct is now Present Diagnosis Line: Nonspecific T wave abnormality now evident in Diagnosis Line: Inferior leads Diagnosis Line: Confirmed by JAC REDDY MD ([id number]) on 09/30/2016 Diagnosis Line: 4:56:03 PM INTERPRETING MD: MAUREEN ESPINOZA
--- NOTE | ~2016-09-30 | CT71 ---
[facility] A Service of [facility] RADIOLOGY TEXT RESULTS PATIENT: VERONIQUE RODRIGUEZ LOCATION: [facility] : 82 UNIT #: [id number] AGE: [address]: Vinay Fernandez MD SEX: F ORDER DR: [id number] [facility] [address] [place], [place] [address] [id number] E MR#: [id number] Acc #: [id number] NAME: VERONIQUE RODRIGUEZ. : 1980 SEX: F STUDY DATE/TIME: 09/30/2016 0528 UNIT: [facility] ROOM: STUDY DESCRIPTION: CT Head Wo Contrast Attending Physician: Vinay Fernandez M.D. Ordering Physician: Sergio Olmedo Aprn Primary Care Physician: No Primary Care Physician MEDICAL IMAGING REPORT This report is preliminary unless electronic signature is present EXAM Head CT, 09/30 at 0528. INDICATION Patient injected heroin and meth tonight and started hearing voices with increasing confusion. COMPARISON 04/17/2014 TECHNIQUE Axial noncontrast images were obtained from the skull base to the vertex. This CT exam was performed with one or more of the following radiation dose reduction techniques: automatic exposure control, adjustment of mA and/or kV according to patient size, and iterative reconstruction. FINDINGS Ventricular size and configuration are normal. There is no evidence of acute infarct or hemorrhage. There are no extraaxial fluid collections. No mass lesion or mass effect is seen. There are no skull fractures. IMPRESSION Normal noncontrast head CT. Dictated by... Bhanu Zavala Jr., M.D. THIS IS AN ELECTRONICALLY VERIFIED REPORT Bhanu Zavala Jr., M.D. at 10/03/2016 5:51 AM RLK/tmw [facility] A Service of [facility] RADIOLOGY TEXT RESULTS PATIENT: VERONIQUE RODRIGUEZ LOCATION: [facility] : 82 UNIT #: [id number] AGE: [address]: Vinay Fernandez MD SEX: F ORDER DR: TD: 09/30/2016 11:15 JOB #: [id number] MEDICAL IMAGING REPORT Page 1 of 1 COPY
--- NOTE | ~2016-09-30 | CT98 ---
[facility] A Service of [facility] RADIOLOGY TEXT RESULTS PATIENT: VERONIQUE RODRIGUEZ LOCATION: [facility] : 82 UNIT #: [id number] AGE: [address]: Vinay Fernandez MD SEX: F ORDER DR: [id number] [facility] [address] [place], [place] [address] [id number] MR#: [id number] Acc #: [id number] NAME: VERONIQUE RODRIGUEZ. : 1980 SEX: F STUDY DATE/TIME: 09/30/2016 6:16 UNIT: [facility] ROOM: STUDY DESCRIPTION: CT Lumbar Spine Wo Cont Attending Physician: Vinay Fernandez M.D. Ordering Physician: Sergio Olmedo Aprn Primary Care Physician: No Primary Care Physician MEDICAL IMAGING REPORT This report is preliminary unless electronic signature is present EXAM CT of the lumbar spine without contrast. INDICATIONS Lower back pain today. PROCEDURE Unenhanced CT of the lumbar spine. This CT exam was performed with one or more of the following radiation dose reduction techniques: automatic exposure control, adjustment of mA and/or kV according to patient size, and iterative reconstruction. COMPARISON None. FINDINGS There is mild patient motion in the lower lumbar spine. This degrades evaluation of L5. A repeat sequence through the level of L4 and L5 was performed. The lumbar bodies have normal height. Alignment is preserved. No fracture or aggressive appearing bone lesion. There is cidv-ac-pksdivqz degenerative change in the bpr-uy-rkbvb lumbar spine. No critical central canal narrowing. No paravertebral inflammatory changes seen. IMPRESSION 1. No clearly acute finding. 2. Oaut-zo-dniilbtd degenerative change in the mow-yu-jkcfb lumbar spine. Dictated by... Artemio Sauceda M.D. THIS IS AN ELECTRONICALLY VERIFIED REPORT Artemio Sauceda M.D. at 10/03/2016 8:51 AM [facility] A Service of [facility] RADIOLOGY TEXT RESULTS PATIENT: VERONIQUE RODRIGUEZ LOCATION: [facility] : 82 UNIT #: [id number] AGE: [address]: Vinay Fernandez MD SEX: F ORDER DR: Chris TD: 09/30/2016 11:19 JOB #: [id number] MEDICAL IMAGING REPORT Page 1 of 1 COPY
--- NOTE | ~2016-09-30 | CR181 ---
[facility] A Service of [facility] RADIOLOGY TEXT RESULTS PATIENT: VERONIQUE RODRIGUEZ LOCATION: [facility] : 82 UNIT #: [id number] AGE: [address]: Vinay Fernandez MD SEX: F ORDER DR: [id number] [facility] [address] [place], [place] [address] [id number] E MR#: [id number] Acc #: [id number] NAME: VERONIQUE RODRIGUEZ. : 1980 SEX: F STUDY DATE/TIME: 09/30/2016 04:43 UNIT: [facility] ROOM: STUDY DESCRIPTION: CR Lumbar Spine 2 or 3 Views Attending Physician: Vinay Fernandez M.D. Ordering Physician: Sergio Olmedo Aprn Primary Care Physician: Primary Care Physician No MEDICAL IMAGING REPORT This report is preliminary unless electronic signature is present EXAM Lumbar spine x-ray, 09/30 at 04:43 INDICATION Low back pain after patient fell using meth tonight. FINDINGS Three views of the lumbar spine were obtained. The lateral views are limited due to oral contrast in the colon from a prior CT scan. This obscures L4 and L5 to a large degree. No gross compression fractures are seen and there is no gross malalignment. IMPRESSION Limited views of L4 and L5 due to oral contrast in the colon from the patient's recent abdomen CT. No gross abnormalities are seen on this exam. If there is continued clinical concern for lumbar fracture, CT will be needed. Dictated by... Bhanu Zavala Jr., M.D. THIS IS AN ELECTRONICALLY VERIFIED REPORT Bhanu Zavala Jr., M.D. at 10/03/2016 5:51 AM KIKI/sunil TD: 09/30/2016 11:03 JOB #: [id number] MEDICAL IMAGING REPORT Page 1 of 1 COPY
--- NOTE | ~2016-09-30 | CR150 ---
[facility] A Service of [facility] & [facility] RADIOLOGY TEXT RESULTS PATIENT: VERONIQUE RODRIGUEZ LOCATION: [facility] : 82 UNIT #: [id number] AGE: [address]: Vinay Fernandez MD SEX: F ORDER DR: [id number] [facility] [address] [place], [place] [address] [id number] E MR#: [id number] Acc #: [id number] NAME: VERONIQUE RODRIGUEZ : 1980 SEX: F STUDY DATE/TIME: 09/30/2016 6:05 UNIT: [facility] ROOM: STUDY DESCRIPTION: CR Hip Min 2 Views Lt Attending Physician: Vinay Fernandez M.D. Ordering Physician: Sergio Olmedo Aprn Primary Care Physician: No Primary Care Physician MEDICAL IMAGING REPORT This report is preliminary unless electronic signature is present EXAM Left hip series. INDICATIONS Left hip pain after a fall today. PROCEDURE Frontal view of the pelvis and a lateral view of the left hip COMPARISON 08/08/2016. FINDINGS No fracture or dislocation. IMPRESSION No acute findings. Dictated by... Artemio Sauceda M.D. THIS IS AN ELECTRONICALLY VERIFIED REPORT Artemio Sauceda M.D. at 10/03/2016 8:51 AM MARIE/catalina TD: 09/30/2016 11:18 JOB #: [id number] MEDICAL IMAGING REPORT Page 1 of 1 COPY
--- NOTE | ~2016-09-30 | CR172 ---
[facility] A Service of [facility] & [facility] RADIOLOGY TEXT RESULTS PATIENT: VERONIQUE RODRIGUEZ LOCATION: [facility] : 82 UNIT #: [id number] AGE: [address]: Vinay Fernandez MD SEX: F ORDER DR: [id number] [facility] [address] [facility] [place], [place] [address] [id number] E MR#: [id number] Acc #: [id number] NAME: VERONIQUE RODRIGUEZ : 1980 SEX: F STUDY DATE/TIME: 09/30/2016 6:06 UNIT: [facility] ROOM: STUDY DESCRIPTION: CR Knee 3 Views Lt Attending Physician: Vinay Fernandez M.D. Ordering Physician: Sergio Olmedo Aprn Primary Care Physician: Primary Care Physician No MEDICAL IMAGING REPORT This report is preliminary unless electronic signature is present EXAM Left knee series INDICATION Left knee pain after a fall today. PROCEDURE 3 views of the left knee COMPARISON None FINDINGS No fracture or dislocation. No joint effusion. IMPRESSION No acute findings. Dictated by... Artemio Sauceda M.D. THIS IS AN ELECTRONICALLY VERIFIED REPORT Artemio Sauceda M.D. at 10/03/2016 8:51 AM Carlie TD: 09/30/2016 11:17 JOB #: [id number] MEDICAL IMAGING REPORT Page 1 of 1 COPY
--- NOTE | ~2016-09-30 | CT52 ---
[facility] A Service [facility] RADIOLOGY TEXT RESULTS PATIENT: VERONIQUE RODRIGUEZ LOCATION: [facility] : 82 UNIT #: [id number] AGE: [address]: Vinay Fernandez MD SEX: F ORDER DR: [id number] [id number] [place], [place] [address] [id number] E MR#: [id number] Acc #: [id number] NAME: VERONIQUE RODRIGUEZ. : 1980 SEX: F STUDY DATE/TIME: 09/30/2016 6:11 UNIT: [facility] ROOM: STUDY DESCRIPTION: CT Cervical Spine Wo Cont Attending Physician: Vinay Fernandez M.D. Ordering Physician: Sergio Olmedo Aprn Primary Care Physician: Catia Primary Care Physician MEDICAL IMAGING REPORT This report is preliminary unless electronic signature is present EXAM CT cervical spine without contrast. INDICATION Confusion and neck pain today. PROCEDURE Unenhanced CT of the cervical spine. This CT exam was performed with one or more of the following radiation dose reduction techniques: automatic exposure control, adjustment of mA and/or kV according to patient size, and iterative reconstruction. COMPARISON None FINDINGS Reversal of the normal cervical lordosis. Cervical bodies have normal height. Alignment is preserved. Mild degenerative change C4-5 and C6-C7. Craniocervical junction and the dens are intact. Trace mastoid air cell effusions. No fracture. No critical central canal narrowing. IMPRESSION 1. No acute findings in the cervical spine. 2. Reversal of the cervical lordosis may be positional or related to muscle spasm. 3. Degenerative change at C4-5 and C6-7 is mild. Dictated by... Artemio Sauceda M.D. [facility] A Service [facility] RADIOLOGY TEXT RESULTS PATIENT: VERONIQUE RODRIGUEZ LOCATION: [facility] : 84 UNIT #: [id number] AGE: [address]: Vinay Fernandez MD SEX: F ORDER DR: THIS IS AN ELECTRONICALLY VERIFIED REPORT Artemio Sauceda M.D. at 10/03/2016 8:51 AM MARIE/bishnu TD: 09/30/2016 11:40 JOB #: [id number] MEDICAL IMAGING REPORT Page 1 of 1 COPY
--- NOTE | ~2016-09-30 | CR58 ---
[facility] A Service of [facility] & [facility] & [facility] RADIOLOGY TEXT RESULTS PATIENT: VERONIQUE RODRIGUEZ LOCATION: [facility] : 82 UNIT #: [id number] AGE: [address]: Vinay Fernandez MD SEX: F ORDER DR: [id number] [facility] [address] [place], [place] [address] [id number] E MR#: [id number] Acc #: [id number] NAME: VERONIQUE RODRIGUEZ. : 1980 SEX: F STUDY DATE/TIME: 09/30/2016 04:45 UNIT: [facility] ROOM: STUDY DESCRIPTION: CR Cervical Spine 2 or 3 Views Attending Physician: Vinay Fernandez M.D. Ordering Physician: Sergio Olmedo Aprn Primary Care Physician: Primary Care Physician No MEDICAL IMAGING REPORT This report is preliminary unless electronic signature is present EXAM Cervical spine 09/30 at 04:45 INDICATION Neck pain after using meth tonight and falling backwards. FINDINGS Four views of the cervical spine were obtained. No comparison. Prevertebral soft tissues are normal. There is degenerative disc space narrowing at C5-5 and to a lesser degree at C6-7. The patient is probably slightly rotated. Unusual appearance to the facets at C5 level may be a congenital finding or degenerative but I would recommend followup with a CT cervical spine to completely exclude fracture. IMPRESSION Somewhat obliqued exam. There is degenerative disease in the cervical spine most pronounced at C5-6. Unusual appearance to the C5 facets may simply be positional or even congenital but since there has been a trauma, I would recommend followup with a cervical spine CT. Dictated by... Bhanu Zavala Jr., M.D. THIS IS AN ELECTRONICALLY VERIFIED REPORT Bhanu Zavala Jr., M.D. at 10/03/2016 5:51 AM KIKI/clara TD: 09/30/2016 11:10 JOB #: [id number] MEDICAL IMAGING REPORT Page 1 of 1 COPY
[2016-09-30 04:21] LABS: AMPHETAMINE POS (NEG); BARBITURATES NEG (NEG); BENZODIAZEPINES NEG (NEG); COCAINE NEG (NEG); MARIJUANA NEG (NEG); OPIATES NEG (NEG); TRICYCLIC ANTIDEPRESSANTS NEG (NEG); U METHADONE NEG (NEG)
[2016-09-30 06:01] LABS: EOSINOPHIL# 0.1 X10e3 (0-0.7); HEMATOCRIT 29.8 % (35.0-45.0); HEMOGLOBIN 9.8 gm/dL (12.0-16.0); LYMPHOCYTE# 1.4 X10e3 (1.0-3.5); LYMPHOCYTE% 37.3 % (17.0-45.0); MEAN CELL VOLUME 80.7 FL (83-96); MEAN CORPUSCULAR HEMOGLOBIN 26.5 PG (28-34); MEAN CORPUSCULAR HGB CONC 32.9 g/dL (30-36); MEAN PLATELET VOLUME 8.2 FL (6.5-11.5); MONOCYTE# 0.3 X10e3 (0-1.0); MONOCYTE% 7.6 % (3.0-12.0); NEUTROPHIL% 52.1 % (40-75); PLATELET COUNT 177 X10e3 (140-420); RED BLOOD COUNT 3.69 X10e (3.90-5.30); RED CELL DISTRIBUTION WIDTH 17.8 % (11.0-15.5); WHITE BLOOD COUNT 3.9 X10e3 (4.0-10.5)
[2016-09-30 06:04] LABS: POC - CKMB 1.2 ng/mL (0.0-7.9); POC - TROPONIN <0.05 ng/mL (<=0.05)
[2016-09-30 06:20] LABS: DIFF IND NO
[2016-09-30 06:49] LABS: POC - CKMB <1.0 ng/mL (0.0-7.9); POC - TROPONIN <0.05 ng/mL (<=0.05)
[2016-09-30 07:17] LABS: ALBUMIN SERUM 3.8 g/dL (3.5-5.0); ALKALINE PHOSPHATASE 78 U/L (32-92); ALT (SGPT) 15 U/L (10-40); AST (SGOT) 18 U/L (10-42); BILIRUBIN, DIRECT 0.1 mg/dL (0.0-0.2); BILIRUBIN,INDIRECT 0.3 mg/dL (0.0-0.9); BILIRUBIN,TOTAL 0.4 mg/dL (0.2-2.0); BLOOD UREA NITROGEN 11 mg/dL (9-23); BUN/CREATININE RATIO 15.71; CALCIUM SERUM 8.9 mg/dL (8.4-10.2); CARBON DIOXIDE 26 mmol/L (22-31); CHLORIDE 105 mmol/L (100-111); CREATININE SERUM 0.7 mg/dL (0.6-1.4); GLUCOSE FASTING 107 mg/dL (70-110); POTASSIUM 3.6 mmol/L (3.5-5.1); PROTEIN TOTAL SERUM 7.1 g/dL (6.0-8.3); SODIUM 138 mmol/L (135-145)
[2016-09-30 07:22] LABS: ALCOHOL BLOOD <5 mg/dL ([, 0])
[2016-09-30 14:04] LABS: URINE APPEARANCE TURBID; URINE BILIRUBIN NEG (NEG); URINE BLOOD TRACE (NEG); URINE COLOR YELLOW; URINE GLUCOSE NEG (NEG); URINE KETONE NEG (NEG); URINE LEUKOCYTE ESTERASE 2+ (NEG); URINE NITRATE NEG (NEG); URINE PH 5.5 (5-8); URINE PROTEIN NEG (NEG); URINE SPECIFIC GRAVITY 1.022 (1.003-1.035); URINE UROBILINOGEN 0.2 MG/DL (NEG)
[2016-09-30 14:05] LABS: CULTURE INDICATED? YES; URINE SQUAMOUS EPITHELIAL CELL OCC /[HPF]; UWBCS1 AUWI 25-50 (0-5)
[2016-09-30 14:40] LABS: URINE BACTERIA AUWI 1+ (NEGATIVE)
== END 2016-09-30 10:54 | disposition short-term general hospital (02) ==
LOC: CED 01:52
PROVIDERS: Nurse Practitioner Family
DX: S13.9XXA Sprain of joints and ligaments of unspecified parts of neck, initial encounter (principal); S33.5XXA Sprain of ligaments of lumbar spine, initial encounter; S80.02XA Contusion of left knee, initial encounter; S70.02XA Contusion of left hip, initial encounter; R44.0 Auditory hallucinations; F23 Brief psychotic disorder; F15.10 Other stimulant abuse, uncomplicated; F17.210 Nicotine dependence, cigarettes, uncomplicated; Z79.899 Other long term (current) drug therapy; V03.99XA Pedestrian with other conveyance injured in collision with car, pick-up truck or van, unspecified whether traffic or nontraffic accident, initial encounter
CPT/HCPCS: 36415; 70450; 72040; 72100; 72125; 72131; 73502; 73562; 80048; 80076; 80307; 81003; 82553; 82947; 84484; 85025; 87086; 93005; 99285; G0480

== ENCOUNTER 2016-09-30 09:27 | Inpatient (IN) | payer OTHER ==
[~2016-09-30] VITALS: Ht 165.1 cm; Wt 49.9 kg
--- NOTE | ~2016-09-30 | PN ---
Unit #: [id number] #: [id number] Patient: VERONIQUE RODRIGUEZ [id number] [facility] [address] [place] [address] [id number] I MR#: [id number] NAME: VERONIQUE RODRIGUEZ. ROOM: P179 Age: 36 Sex: F Admission Date: 09/30/2016 : 1980 Attending Physician: Modesto Morelos M.D. Admitting Physician: Modesto Morelos M.D. Primary Care Physician: Generic Doctor Not In System [facility] PROGRESS NOTES DATE OF SERVICE: 10/02/2016 SUBJECTIVE Ms. Rodriguez is a 36-year-old white female, who was seen today and chart was reviewed, and case was discussed with the staff. She remains anxious, withdrawn, and rather seclusive to herself with blunted affect and minimal interaction socializing, interacting, or participating in any activities. She has been able to perform activities of daily living personal hygiene. MENTAL STATUS EXAMINATION Young white female who was casually dressed with fair personal hygiene, appears to be in slight distress and discomfort. She was awake and alert with impaired attention and concentration. Her mood was anxious and depressed with a congruent affect. Her speech was slow and restricted in content. Her thought process was disorganized with some looseness of association, suicidal ideations. Her insight and judgment remain significantly impaired. TREATMENT PLAN 1. We will continue on her current medications and treatment protocol. We will monitor her response to medications and make further adjustments as needed. 2. We will continue to follow up. Dictated by... Elisa Patino/merlin TD: 10/03/2016 23:59 JOB #: [id number] Unit #: [id number] #: [id number] Patient: VERONIQUE RODRIGUEZ [facility] PROGRESS NOTES Page 1 of 1 X Modesto Morelos MD PROGRESS NOTE
--- NOTE | ~2016-09-30 | PN ---
Unit #: [id number] #: [id number] Patient: VERONIQUE RODRIGUEZ [id number] [facility] [address] [place] [address] [id number] I MR#: [id number] NAME: VERONIQUE RODRIGUEZ. ROOM: P179 Age: 36 Sex: F Admission Date: 09/30/2016 : 1980 Attending Physician: Modesto Morelos M.D. Admitting Physician: Modesto Morelos M.D. Primary Care Physician: Sebastien Doctor Not In System [facility] PROGRESS NOTES DATE 10/03/2016 DISCUSSION Ms. Rodriguez is a 36-year-old white female who was seen today and chart was reviewed and case was discussed with the staff. She has been anxious, withdrawn and seclusive to herself. Reports persistent depressive symptoms. Meanwhile, she has been taking the medication and tolerating them fairly well with no reported side effects. MENTAL STATUS EXAMINATION Young white female who was casually dressed with fair personal hygiene, appears to be in no acute distress or discomfort. She was awake and alert on interaction with intact orientation. Her mood was anxious and depressed with congruent affect. Her speech was slow and restricted in content. She reports having suicidal ideation and auditory hallucinations. Her insight and judgement remains significantly impaired. TREATMENT PLAN 1. We will continue her on her current medications and treatment protocol. We will monitor her response and make further adjustments as needed. 2. We will continue to follow up. Dictated by... Elisa Patino/jaspreet TD: 10/04/2016 05:36 JOB #: [id number] Unit #: [id number] #: [id number] Patient: VERONIQUE RODRIGUEZ [facility] PROGRESS NOTES Page 1 of 1 X Modesto Morelos MD X PROGRESS NOTE
--- NOTE | ~2016-09-30 | PN ---
Unit #: [id number] #: [id number] Patient: VERONIQUE RODRIGUEZ [id number] [facility] [address] [place] [address] [id number] MR#: [id number] NAME: VERONIQUE RODRIGUEZ. ROOM: P179 Age: 36 Sex: F Admission Date: 09/30/2016 : 1980 Attending Physician: Modesto Morelos M.D. Admitting Physician: Modesto Morelos M.D. Primary Care Physician: Sebastien Doctor Not In System [facility] PROGRESS NOTES DATE 10/01/2016 DISCUSSION Ms. Rodriguez is a 36-year-old white female who was seen today and chart was reviewed and case was discussed with the staff. She has been anxious, withdrawn and rather seclusive to herself. Meanwhile, she has been taking medications and tolerating them fairly well with no reported side effects. MENTAL STATUS EXAMINATION Young white female who was casually dressed with fair personal hygiene and appears to be in no acute distress or discomfort. She was awake and alert with intact orientation. Her mood was anxious with congruent affect. She denies any suicidal or homicidal ideation. Her insight and judgement remains slightly impaired. TREATMENT PLAN 1. Will continue on current medications and treatment protocol. Will monitor her response to medications and make further adjustments as needed. 2. Will continue to follow up. Dictated by... Elisa Patino/emma TD: 10/03/2016 14:20 JOB #: [id number] [facility] PROGRESS NOTES Page 1 of 1 X Modesto Morelos MD PROGRESS NOTE
--- NOTE | ~2016-09-30 | PN ---
Unit #: [id number] #: [id number] Patient: VERONIQUE RODRIGUEZ [id number] [facility] [address] [place] [address] [id number] I MR#: [id number] NAME: VERONIQUE RODRIGUEZ. ROOM: 79 Age: 36 Sex: F Admission Date: 09/30/2016 : 1980 Attending Physician: Modesto Morelos M.D. Admitting Physician: Modesto Morelos M.D. Primary Care Physician: Generic Doctor Not In System [facility] PROGRESS NOTES DATE OF SERVICE 10/05/2016 DISCUSSION Ms. Rodriguez is a 36-year-old white female who was seen today. Chart was reviewed and case was discussed with the staff. She has been anxious, withdrawn, and rather seclusive to herself. Meanwhile, she has been cooperative with the treatment recommendations and has been taking the medications and tolerating them fairly well. MENTAL STATUS EXAMINATION Young white female who is casually dressed with fair personal hygiene, appears to be in no acute distress or discomfort. The patient was awake and alert on interaction with intact orientation. Her mood is anxious with congruent affect. Her speech is slow and goal-directed. She denies any suicidal or homicidal ideations and also denies any auditory or visual hallucinations. Her insight and judgment remain slightly impaired. TREATMENT PLAN 1. We will continue her on her current medications and treatment protocol. We will monitor her response to the medications and make further adjustments as needed. 2. We will continue to follow up. Dictated by... Modesto Morelos M.D. IAA/yousufg TD: 10/05/2016 11:36 JOB #: [id number] Unit #: [id number] #: [id number] Patient: VERONIQUE ORDRIGUEZ [facility] PROGRESS NOTES Page 1 of 1 X Modesto Morelos MD PROGRESS NOTE
--- NOTE | ~2016-09-30 | PN ---
Unit #: [id number] #: [id number] Patient: VERONIQUE RODRIGUEZ [id number] [facility] [address] [place] [address] [id number] I MR#: [id number] NAME: VERONIQUE RODRIGUEZ. ROOM: [facility] Age: 36 Sex: F Admission Date: 09/30/2016 : 1980 Attending Physician: Modesto Morelos M.D. Admitting Physician: Modesto Morelos M.D. Primary Care Physician: Sebastien Doctor Not In System [facility] PROGRESS NOTES DATE October 04, 2016 DISCUSSION Ms. Rodriguez is a 36-year-old white female, who was seen today and chart was reviewed and the case was discussed with the staff. The patient has been anxious, withdrawn, and rather seclusive to herself. Meanwhile, she has been cooperative with the treatment recommendations and she has been taking the medications and tolerating them fairly well with no reported side effects. MENTAL STATUS EXAMINATION Young white female, who was casually dressed with fair personal hygiene and appears to be in no acute distress or discomfort. The patient was awake and alert with impaired attention and concentration. Her mood was anxious with a congruent affect. Her speech is slow and restricted in content. She denies any suicidal or homicidal ideations. Her insight and judgment remain slightly impaired. TREATMENT PLAN 1. We will continue her on her current medications and treatment protocol, and will monitor her response to the medications, and make further adjustments as needed. 2. We will continue to followup. Dictated by... Elisa Patino/luis TD: 10/04/2016 12:50 JOB #: [id number] Unit #: [id number] #: [id number] Patient: VERONIQUE RODRIGUEZ [facility] PROGRESS NOTES Page 1 of 1 X Modesto Morelos MD PROGRESS NOTE
--- NOTE | ~2016-09-30 | A ---
[facility] Nutrition Therapy DATE: 10/03/16 Patient: VERONIQUE RODRIGUEZ Physician: RODGER Address: [address] Room/Bed: [address], Zip: [place] [address] Admit Date: 09/30/16 Date of : [birth year] Height: 5 5 Weight: 109 49.89 NUTRITIONAL ASSESSMENT: REASON: NUTRITIONAL RISK POINT- CHEWING/SWALLOWING DIFFICULTIES, POSSIBLE LOW BMI PATIENT ADMITTED FOR POLYSUBSTANCE ABUSE AND HALLUCINATIONS PMH: SEIZURE DISORDER, POOR DENTAL HYGIENE, LONG HX POLYSUBSTANCE ABUSE Anthropometrics: HT: 64-65", WT: 109 VS 120#, BMI: 18.1 - 20.6 (UNDERWEIGHT VS NORMAL WEIGHT) Labs: 10/01/16- NUTRITIONAL LABS WNL Meds: KATE RICCI Assessment: PATIENT IS A 36 Y/O FEMALE ADMITTED FOR POLYSUBSTANCE ABUSE AND HALLUCINATIONS. PATIENT IS CURRENTLY UNEMPLOYED, ON DISABILITY, HOMELESS, SMOKES 1/2 PPD, HAS DAILY METH USE, AND HAS A HX OF POLYSUBSTANCE ABUSE. IT IS NOTED THAT PATIENT HAS FREQUENT ADMISSIONS TO THIS FACILITY, WITH HER LAST D/C ON 10/03/16, SHES'S ON A 72 HOUR HOLD, AND SHE HAS BEEN NON-COMPLIANT WITH HER MEDICATIONS PRIOR TO ADMIT. RD ASSESSED PATIENT 09/23/16- NOTE REVIEWED. UPON ADMIT PATIENT STATED A POOR APPETITE WITH A 10# WEIGHT LOSS X LAST 6 MONTHS, AND SHE HAS NOT BEEN SLEEPING (AVG 2HRS/NIGHT). WEIGHT HX PER [employer] SHOWS LARGE FLUCTUATIONS IN HER RECORDED HX. HER UBW SEEMS TO BE ~110-120#. PATIENT'S HEIGHT WAS ALSO RECORDED 64" AND 65" ON DATE OF ADMISSION. THIS RD WILL REQUEST A NEW HEIGHT AND WEIGHT FROM NURSING STAFF. PATIENT IS CURRENTLY ON REMERON, WHICH IS AN APPETITE STIMULANT. THERE ARE NO SKIN OR GI ISSUES NOTED ATT; HOWEVER PATIENT DOES HAVE POOR DENTAL HYGIENE WITH SEVERAL ROTTING TEETH. SHE IS CURRENTLY ON A REGULAR DIET. PATIENT SCORED A RISK POINT FOR CHEWING AND SWALLOWING DIFFICULTIES. SHE IS TOLERATING A REGULAR DIET AND NURSING REPORTS GOOD PO INTAKES SINCE ADMISSION. Dx: INADEQUATE NUTRIENT INTAKE/UNINTENTIONAL WEIGHT LOSS R/T CURRENT CONDITION, DRUG USE AEB SELF-REPORTED WEIGHT LOSS AND DECREASED APPETITE, POSSIBLE LOW BMI?, NUTRITIONAL RISK POINT Intervention: REGULAR DIET, LARGER PORTIONS, MEDS PER MD, PSYCH Monitoring, Evaluation and Goals: 1. ADEQUATE PO AND FLUID INTAKES >50% OF MEALS 2. PREVENT, CORRECT MICRO/MACRO NUTRIENT DEFICIENCIES 3. WEIGHT; PROMOTE A STEADY WEIGHT GAIN TOWARDS A HEALTHY BMI OF 19-25, PREVENT WEIGHT LOSS [facility] Nutrition Therapy DATE: 10/03/16 Patient: VERONIQUE Arango MICHAEL Physician: RODGER Address: [address] [place], [place] [address] Room/Bed: [address], Zip: [place] [address] Admit Date: 09/30/16 Date of : [birth year] Height: 5 5 Weight: 109 49.89 MONITOR: WEIGHTS, LABS, PO/FLUID INTAKES Recommendations: 1. CONTINUE REGULAR DIET TOLERATED. OFFER SNACKS BETWEEN MEALS. WILL INCREASE PATIENT'S ENTREES TO LARGER PORTIONS D/T NEED FOR AN INCREASED CALORIC INTAKE 2. ENCOURAGE ADEQUATE PO AND FLUID INTAKES 3. OBTAIN NEW HEIGHT AND WEIGHT. CONTINUE TO WEIGH PATIENT ROUTINELY (EVERY 3-4 DAYS) 4. IF PATIENT HAS ANY FURTHER C/O CHEWING OR SWALLOWING DIFFICULTIES PLEASE CONSULT COLORING CHECKER FOR FURTHER EVALUATION RD TO F/U PER PROTOCOL AND PRN R/T PATIENT MILDLY COMPROMISED Respectfully, SANCHEZ SOLIS, RD, LD [facility] and Nutrition[facility] cc: client file
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
--- NOTE | ~2016-09-30 | HP ---
Unit #: [id number] #: [id number] Patient: SHERIN RODRIGUEZ [id number] [facility] [address] [place] [address] [id number] I MR#: [id number] NAME: SHERIN RODRIGUEZ. ROOM: P214 Age: 36 Sex: F Admission Date: 09/30/2016 : 1980 Attending Physician: Modesto Morelos M.D. Admitting Physician: Modesto Morelos M.D. Primary Care Physician: Generic Doctor Not In System HISTORY AND PHYSICAL Sherin is a 36 year old admitted to [address] [place] [address] because of her continued polysubstance abuse. She was just discharged from this facility. Patient was seen and H and P dated 09/21/16 was reviewed. This is current. No changes. Please see H and P dated 09/21/16. Dictated by... Pam Mondragon P.A.-C. for Elisa Schuster/emma TD: 10/01/2016 18:53 JOB #: [id number] HISTORY AND PHYSICAL Page 1 of 1 X Pam Mondragon HISTORY AND PHYSICAL
[2016-10-01 11:01] LABS: URINE APPEARANCE CLEAR; URINE BILIRUBIN NEG (NEG); URINE BLOOD 3+ (NEG); URINE COLOR YELLOW; URINE GLUCOSE NEG (NEG); URINE KETONE NEG (NEG); URINE LEUKOCYTE ESTERASE 1+ (NEG); URINE NITRATE NEG (NEG); URINE PROTEIN NEG (NEG); URINE SPECIFIC GRAVITY 1.008 (1.003-1.035); URINE UROBILINOGEN 0.2 MG/DL (NEG)
[2016-10-01 11:06] LABS: U HYALINE CASTS AUWI 0-2 /[LPF]; URBCS1 AUWI 200-300 /[HPF] (0-2); URINE BACTERIA AUWI NEG (NEGATIVE); URINE SQUAMOUS EPITHELIAL CELL OCC /[HPF]
[2016-10-01 11:38] LABS: AMPHETAMINE POS (NEG); BARBITURATES NEG (NEG); BENZODIAZEPINES NEG (NEG); COCAINE NEG (NEG); MARIJUANA NEG (NEG); OPIATES NEG (NEG); TRICYCLIC ANTIDEPRESSANTS NEG (NEG); U METHADONE NEG (NEG)
[2016-10-01 13:48] LABS: BASOPHIL% 0.8 % (0-2.5); EOSINOPHIL# 0.1 X10e3 (0-0.7); EOSINOPHIL% 2.2 % (0.0-7.0); HEMOGLOBIN 11.1 gm/dL (12.0-16.0); LYMPHOCYTE# 1.1 X10e3 (1.0-3.5); LYMPHOCYTE% 19.8 % (17.0-45.0); MEAN CELL VOLUME 81.4 FL (83-96); MEAN CORPUSCULAR HEMOGLOBIN 25.8 PG (28-34); MEAN CORPUSCULAR HGB CONC 31.7 g/dL (30-36); MEAN PLATELET VOLUME 9.1 FL (6.5-11.5); MONOCYTE# 0.3 X10e3 (0-1.0); MONOCYTE% 5.1 % (3.0-12.0); NEUTROPHIL% 72.1 % (40-75); PLATELET COUNT 234 X10e3 (140-420); RED CELL DISTRIBUTION WIDTH 18.2 % (11.0-15.5); WHITE BLOOD COUNT 5.6 X10e3 (4.0-10.5)
[2016-10-01 13:49] LABS: DIFF IND NO
[2016-10-01 13:59] LABS: ALBUMIN SERUM 3.9 g/dL (3.5-5.0); BILIRUBIN,TOTAL 0.2 mg/dL (0.2-2.0); BUN/CREATININE RATIO 21.42; CALCIUM SERUM 9.4 mg/dL (8.4-10.2); CREATININE SERUM 0.7 mg/dL (0.6-1.4); POTASSIUM 4.6 mmol/L (3.5-5.1); PROTEIN TOTAL SERUM 7.1 g/dL (6.0-8.3)
== END 2016-10-05 13:45 | DRG 885 ==
LOC: P1E 11:56 → P2S 11:56 → P1E 10-02 16:05 → POF 10-02 16:20 → P1E 10-02 16:22
PROVIDERS: Psychiatry & Neurology Psychiatry
PROC: HZ2ZZZZ Detoxification Services for Substance Abuse Treatment (ICD-10-PCS; principal; 2016-09-30)
DX: F33.3 Major depressive disorder, recurrent, severe with psychotic symptoms (principal); F11.20 Opioid dependence, uncomplicated; R45.851 Suicidal ideations; F15.20 Other stimulant dependence, uncomplicated
CPT/HCPCS: 80053; 80307; 81003; 84703; 85025

== ENCOUNTER 2016-10-18 02:32 | Emergency (ER) | payer OTHER | END 2016-10-18 07:45 | disposition home or self-care (01) | LOC: CED 02:32 | DX: Z76.0 Encounter for issue of repeat prescription (principal) | CPT/HCPCS: 99281 ==